=== PATIENT | male | born 1975 | race Caucasian/White ===

== ENCOUNTER 2022-03-06 02:22 | Observation (INO) | payer BC, OTHER ==
--- OUTSIDE RECORDS SUMMARY | 2022-03-06 02:26 | XMS REPORT | Continuity of Care Document ---
:1975 [facility] Organization [facility] t Address [address] [place] [address] Care Team Providers Name Role Phone RAIZA ASHBY Primary Care Physician Unavailable Raiza Ashby Attending Clinician Unavailable Darshan Dunn Attending Clinician Therapy, [facility]fusion Attending Clinician Unavailable Sanya Negron MD Attending Clinician SANYA NEGRON Attending Clinician Unavailable Doctor Unassigned, [place] Attending Clinician Unavailable Amanda MORALEZ, Shirley T Attending Clinician Unavailable Isabel Koehler Attending Clinician ISABEL GARCIA Attending Clinician Unavailable Only, Ang Db Test Attending Clinician Unavailable DARSHAN BAZAN Attending Clinician Unavailable Matthias CALDERON, Gibson Attending Clinician Katarzyna CALDERON, Alida Morrison Attending Clinician Unavailable Payers Payer Name Policy Type Policy Number Effective Date Expiration Date S ource Problems Condition Condition Condition Status Onset Resolution Last Treating Co mments Source Name Details Category Date Date Treatment Clinician Date Dyslipidem Dyslipidem Disease Active 2016-07 U nivers ia ia 0-23 ity of 00:00: [address] Elevated Elevated Disease Active 2016-07 Unive rs hematocrit hematocrit 0-23 it y of 00:00: [place] 00 [facility] Elevated Elevated Disease Active Unive rs blood blood 1-31 ity of pressure pressure 00:00: [place] 00 [facility] Hypogonadi Hypogonadi Disease Active U nivers sm in male sm in male 1-30 it y of 00:00: [place] 00 [facility] Primary Primary Disease Active Univers adrenal adrenal 7-25 ity of insuffic[place] [facility] Allergies, Adverse Reactions, Alerts Allergy Allergy Status Severity Reaction(s) Onset Inactive Treating Comm ents Source Name Type Date Date Clinician PENICILL Drug Active Hives Univers INS Class 6-22 ity of 00:00: [place] 00 [facility] Penicill Propensi Active Hives Univer s ins ty to 6-22 ity of adverse 00:00: [place] reaction 00 [facility] Social History Social Habit Start Date Stop Date Quantity Comments Source Exposure to Not sure [facility] SARS-CoV-2 [facility] (event) [place] Alcohol intake 2021-03-12 2021-03-12 0 /d University of 00:00:00 00:00:00 [facility] Tobacco use and 2018-11-28 2018-11-28 Current user Univers ity of exposure 00:00:00 00:00:00 [facility] Tobacco Comment 2017-04-23 2017-04-23 vapor cigarettes - U niversity of 00:00:00 00:00:00 current user [facility] History of 2014-04-23 Cigarette Smoker Universi ty of tobacco use 00:00:00 [facility] Sex Ass[birth year] At [birth year] Universit y of 00:00:00 00:00:00 [facility] Smoking Status Start Date Stop Date Source Former smoker 2018-11-28 00:00:00 2018-11-28 00:00:00 Universi ty of [facility] Medications Ordered Filled Start Stop Current Ordering Indication Dosage Frequency Signature Comments Components Source Medication Medication Date Date Medication? Clinician (SIG) Name Name casirivimab 2021- No [id number] 1200mg 1,200 mg, Univers -imdevimab 03-15 Subcutaneo it y of (REGEN-COV 21:30: 20:22 [place] ([place]UA[place] 00 :00 1 dose, On Medical injection Tue Branch 1,200 mg 03/15/21 at 1630, Routine casirivimab 0 2020- No [id number] 1200mg 1,200 mg, [facility] -imdevimab 03-15 Subcutaneo it y of (REGEN-COV 21:30: 20:22 [place], [place]CE, [place] (EUA[place] 00 :00 1 dose, On Medical injection Tue Branch 1,200 mg 03/15/21 at 1630, Routine MAGNESIUM 0 Yes Take by Unive rs HYDROXIDE 9-11 mouth. ity of (MAGNESIA 19:26: [place] ORAL) 07 Medical Branch DOCOSAHEXAN Yes Take by Uni vers OIC 9-11 mouth. ity of ACID/EPA 19:26: [place] (FISH OIL 07 Medical ORAL) Branch MAGNESIUM Yes Take by Unive rs HYDROXIDE 9-11 mouth. ity of (MAGNESIA 14:26: [place] ORAL) 07 Medical Branch DOCOSAHEXAN Yes Take by Uni vers OIC 9-11 mouth. ity of ACID/EPA 14:26: [place] (FISH OIL 07 Medical ORAL) Branch MAGNESIUM Yes Take by Unive rs HYDROXIDE 9-11 mouth. ity of (MAGNESIA 14:26: [place] ORAL) 07 Medical Branch DOCOSAHEXAN Yes Take by Uni vers OIC 9-11 mouth. ity of ACID/EPA 14:26: [place] (FISH OIL 07 Medical ORAL) Branch MAGNESIUM 0 Yes Take by Unive rs HYDROXIDE 9-11 mouth. ity of (MAGNESIA 14:26: [place] ORAL) 07 Medical Branch DOCOSAHEXAN Yes Take by Uni vers OIC 9-11 mouth. ity of ACID/EPA 14:26: [place] (FISH OIL 07 Medical ORAL) Branch MAGNESIUM 0 Yes Take by Unive rs HYDROXIDE 9-11 mouth. ity of (MAGNESIA 14:26: [place] ORAL) 07 Medical Branch DOCOSAHEXAN Yes Take by Uni vers OIC 9-11 mouth. ity of ACID/EPA 14:26: [place] (FISH OIL 07 Medical ORAL) Branch MAGNESIUM 2021-0 Yes Take by Unive rs HYDROXIDE 9-11 mouth. ity of (MAGNESIA 14:26: [place] ORAL) 07 Medical Branch DOCOSAHEXAN Yes Take by Uni vers OIC 9-11 mouth. ity of ACID/EPA 14:26: [place] (FISH OIL 07 Medical ORAL) Branch MAGNESIUM Yes Take by Unive rs HYDROXIDE 9-11 mouth. ity of (MAGNESIA 14:26: [place] ORAL) 07 Medical Branch DOCOSAHEXAN Yes Take by Uni vers OIC 9-11 mouth. ity of ACID/EPA 14:26: [place] (FISH OIL 07 Medical ORAL) Branch albuterol Yes [id number] 2{puff} Inhale 2 Univers 90 9-11 Puffs ity of mcg/actuati 00:00: every 6 [place] as on inhaler 00 (six) Medical hours as Branch needed for Wheezing or Shortness of Breath. albuterol Yes [id number] 2{puff} Inhale 2 Univers 90 9-11 Puffs ity of mcg/actuati 00:00: every 6 [place] as on inhaler 00 (six) Medical hours as Branch needed for Wheezing or Shortness of Breath. albuterol Yes [id number] 2{puff} Inhale 2 Univers 90 9-11 Puffs ity of mcg/actuati 00:00: every 6 [place] as on inhaler 00 (six) Medical hours as Branch needed for Wheezing or Shortness of Breath. albuterol Yes [id number] 2{puff} Inhale 2 Univers 90 9-11 Puffs ity of mcg/actuati 00:00: every 6 [place] as on inhaler 00 (six) Medical hours as Branch needed for Wheezing or Shortness of Breath. albuterol Yes [id number] 2{puff} Inhale 2 Univers 90 9-11 Puffs ity of mcg/actuati 00:00: every 6 [place] as on inhaler 00 (six) Medical hours as Branch needed for Wheezing or Shortness of Breath. albuterol Yes [id number] 2{puff} Inhale 2 Univers 90 9-11 Puffs ity of mcg/actuati 00:00: every 6 [place] as on inhaler 00 (six) Medical hours as Branch needed for Wheezing or Shortness of Breath. albuterol Yes [id number] 2{puff} Inhale 2 Univers 90 9-11 Puffs ity of mcg/actuati 00:00: every 6 [place] as on inhaler 00 (six) Medical hours as Branch needed for Wheezing or Shortness of Breath. ondansetron 2020- No [id number] 4mg Take 1 Univers 4 mg tablet 03-12 tablet by it y of 00:00: 04:59 mouth [place] 00 :00 every 8 Medical (eight) Branch hours for 5 days. ondansetron 2020- No [id number] 4mg Take 1 Univers 4 mg tablet 03-12 tablet by it y of 00:00: 04:59 mouth [place] 00 :00 every 8 Medical (eight) Branch hours for 5 days. ondansetron 2020- No [id number] 4mg Take 1 Univers 4 mg tablet 03-12 tablet by it y of 00:00: 04:59 mouth [place] 00 :00 every 8 Medical (eight) Branch hours for 5 days. ondansetron 2020- No [id number] 4mg Take 1 Univers 4 mg tablet 03-12 tablet by it y of 00:00: 04:59 mouth [place] 00 :00 every 8 Medical (eight) Branch hours for 5 days. ondansetron 2020- No [id number] 4mg Take 1 Univers 4 mg tablet 03-12 tablet by it y of 00:00: 04:59 mouth [place] 00 :00 every 8 Medical (eight) Branch hours for 5 days. PRAVASTATIN 2020-0 Yes TAKE 1 Univ ers 20 mg 2-07 TABLET BY ity of tablet 00:00: MOUTH [place] 00 EVERYDAY Medical AT BEDTIME Branch PRAVASTATIN 2020-0 Yes TAKE 1 Univ ers 20 mg 2-07 TABLET BY ity of tablet 00:00: MOUTH [place] 00 EVERYDAY Medical AT BEDTIME Branch PRAVASTATIN 2020-0 Yes TAKE 1 Univ ers 20 mg 2-07 TABLET BY ity of tablet 00:00: MOUTH [place] 00 EVERYDAY Medical AT BEDTIME Branch PRAVASTATIN 2020-0 Yes TAKE 1 Univ ers 20 mg 2-07 TABLET BY ity of tablet 00:00: MOUTH [place] 00 EVERYDAY Medical AT BEDTIME Branch PRAVASTATIN 2020-0 Yes TAKE 1 Univ ers 20 mg 2-07 TABLET BY ity of tablet 00:00: MOUTH [place] 00 EVERYDAY Medical AT BEDTIME Branch PRAVASTATIN 2020-0 Yes TAKE 1 Univ ers 20 mg 2-07 TABLET BY ity of tablet 00:00: MOUTH [place] 00 EVERYDAY Medical AT BEDTIME Branch PRAVASTATIN 2020-0 Yes TAKE 1 Univ ers 20 mg 2-07 TABLET BY ity of tablet 00:00: MOUTH 00 EVERYDAY Medical AT BEDTIME Branch PRAVASTATIN 2020-0 Yes TAKE 1 Univ ers 20 mg 2-07 TABLET BY ity of tablet 00:00: MOUTH [place] 00 EVERYDAY Medical AT BEDTIME Branch PRAVASTATIN 2020-0 Yes TAKE 1 Univ ers 20 mg 2-07 TABLET BY ity of tablet 00:00: MOUTH 00 EVERYDAY Medical AT BEDTIME Branch PRAVASTATIN 2020-0 Yes TAKE 1 Univ ers 20 mg 2-07 TABLET BY ity of tablet 00:00: MOUTH 00 EVERYDAY Medical AT BEDTIME Branch PRAVASTATIN 2020-0 Yes TAKE 1 Univ ers 20 mg 2-07 TABLET BY ity of tablet 00:00: MOUTH 00 EVERYDAY Medical AT BEDTIME Branch PRAVASTATIN 2020-0 Yes TAKE 1 Univ ers 20 mg 2-07 TABLET BY ity of tablet 00:00: MOUTH 00 EVERYDAY Medical AT BEDTIME Branch PRAVASTATIN 2020-0 Yes TAKE 1 Univ ers 20 mg 2-07 TABLET BY ity of tablet 00:00: MOUTH 00 EVERYDAY Medical AT BEDTIME Branch PRAVASTATIN 2020-0 Yes TAKE 1 Univ ers 20 mg 2-07 TABLET BY ity of tablet 00:00: MOUTH 00 EVERYDAY Medical AT BEDTIME Branch PRAVASTATIN 2020-0 Yes TAKE 1 Univ ers 20 mg 2-07 TABLET BY ity of tablet 00:00: MOUTH 00 EVERYDAY Medical AT BEDTIME Branch PRAVASTATIN 2020-0 Yes TAKE 1 Univ ers 20 mg 2-07 TABLET BY ity of tablet 00:00: MOUTH 00 EVERYDAY Medical AT BEDTIME Branch LOSARTAN 2019-1 Yes [id number] TAKE 1 Un ernestine 100 mg 1-18 TABLET BY ity of tablet 00:00: MOUTH ONCE DAILY Medical Branch LOSARTAN 2019-1 Yes [id number] TAKE 1 Un ernestine 100 mg 1-18 TABLET BY ity of tablet 00:00: MOUTH ONCE DAILY Medical Branch LOSARTAN 2019-1 Yes [id number] TAKE 1 Un ernestine 100 mg 1-18 TABLET BY ity of tablet 00:00: MOUTH ONCE [place] 00 DAILY Medical Branch LOSARTAN 2019- Yes [id number] TAKE 1 Un ernestine 100 mg 1-18 TABLET BY ity of tablet 00:00: MOUTH ONCE Medical Branch LOSARTAN 2019- Yes [id number] TAKE 1 Un ernestine 100 mg 1-18 TABLET BY ity of tablet 00:00: MOUTH ONCE Medical Branch LOSARTAN 2019- Yes [id number] TAKE 1 Un ernestine 100 mg 1-18 TABLET BY ity of tablet 00:00: MOUTH ONCE Medical Branch LOSARTAN 2019- Yes [id number] TAKE 1 Un ernestine 100 mg 1-18 TABLET BY ity of tablet 00:00: MOUTH ONCE Medical Branch LOSARTAN 2019- Yes [id number] TAKE 1 Un ernestine 100 mg 1-18 TABLET BY ity of tablet 00:00: MOUTH ONCE Medical Branch LOSARTAN 2019- Yes [id number] TAKE 1 Un ernestine 100 mg 1-18 TABLET BY ity of tablet 00:00: MOUTH ONCE Medical Branch LOSARTAN 2019- Yes [id number] TAKE 1 Un ernestine 100 mg 1-18 TABLET BY ity of tablet 00:00: MOUTH ONCE Medical Branch LOSARTAN 2019- Yes [id number] TAKE 1 Un ernestine 100 mg 1-18 TABLET BY ity of tablet 00:00: MOUTH ONCE Medical Branch LOSARTAN 2019- Yes [id number] TAKE 1 Un ernestine 100 mg 1-18 TABLET BY ity of tablet 00:00: MOUTH ONCE Medical Branch LOSARTAN 2019- Yes [id number] TAKE 1 Un ernestine 100 mg 1-18 TABLET BY ity of tablet 00:00: MOUTH ONCE Medical Branch LOSARTAN 2019- Yes [id number] TAKE 1 Un ernestine 100 mg 1-18 TABLET BY ity of tablet 00:00: MOUTH ONCE Medical Branch LOSARTAN 2019- Yes [id number] TAKE 1 Un ernestine 100 mg 1-18 TABLET BY ity of tablet 00:00: MOUTH ONCE Medical Branch LOSARTAN 2019- Yes [id number] TAKE 1 Un ernestine 100 mg 1-18 TABLET BY ity of tablet 00:00: MOUTH ONCE Medical Branch PRAVASTATIN 2019- 2020- No TAKE 1 Uni vers 20 mg 0-28 02-07 TABLET BY ity of tablet 00:00: 00:00 MOUTH [place] 00 :00 EVERYDAY Medical AT BEDTIME Branch PRAVASTATIN Yes TAKE 1 Univ ers 20 mg 7-29 TABLET BY ity of tablet 00:00: MOUTH [place] 00 EVERYDAY Medical AT BEDTIME Branch LOVAZA, Yes [id number] TAKE 1 Uni vers OMEGA-3-ACI 5-20 CAPSULE BY it y of D ETHYL 00:00: MOUTH [place] ESTERS, 1 00 TWICE Medical gram DAILY WITH Branch capsule FOOD LOVAZA, Yes [id number] TAKE 1 Uni vers OMEGA-3-ACI 5-20 CAPSULE BY it y of D ETHYL 00:00: MOUTH [place] ESTERS, 1 00 TWICE Medical gram DAILY WITH Branch capsule FOOD LOVAZA, Yes [id number] TAKE 1 Uni vers OMEGA-3-ACI 5-20 CAPSULE BY it y of D ETHYL 00:00: MOUTH [place] ESTERS, 1 00 TWICE Medical gram DAILY WITH Branch capsule FOOD LOVAZA, Yes [id number] TAKE 1 Uni vers OMEGA-3-ACI 5-20 CAPSULE BY it y of D ETHYL 00:00: MOUTH [place] ESTERS, 1 00 TWICE Medical gram DAILY WITH Branch capsule FOOD LOVAZA, Yes [id number] TAKE 1 Uni vers OMEGA-3-ACI 5-20 CAPSULE BY it y of D ETHYL 00:00: MOUTH [place] ESTERS, 1 00 TWICE Medical gram DAILY WITH Branch capsule FOOD LOVAZA, Yes [id number] TAKE 1 Uni vers OMEGA-3-ACI 5-20 CAPSULE BY it y of D ETHYL 00:00: MOUTH [place] ESTERS, 1 00 TWICE Medical gram DAILY WITH Branch capsule FOOD LOVAZA, Yes [id number] TAKE 1 Uni vers OMEGA-3-ACI 5-20 CAPSULE BY it y of D ETHYL 00:00: MOUTH [place] ESTERS, 1 00 TWICE Medical gram DAILY WITH Branch capsule FOOD LOVAZA, Yes [id number] TAKE 1 Uni vers OMEGA-3-ACI 5-20 CAPSULE BY it y of D ETHYL 00:00: MOUTH [place] ESTERS, 1 00 TWICE Medical gram DAILY WITH Branch capsule FOOD LOVAZA, Yes [id number] TAKE 1 Uni vers OMEGA-3-ACI 5-20 CAPSULE BY it y of D ETHYL 00:00: MOUTH [place] ESTERS, 1 00 TWICE Medical gram DAILY WITH Branch capsule FOOD LOVAZA, Yes [id number] TAKE 1 Uni vers OMEGA-3-ACI 5-20 CAPSULE BY it y of D ETHYL 00:00: MOUTH [place] ESTERS, 1 00 TWICE Medical gram DAILY WITH Branch capsule FOOD LOVAZA, Yes [id number] TAKE 1 Uni vers OMEGA-3-ACI 5-20 CAPSULE BY it y of D ETHYL 00:00: MOUTH [place] ESTERS, 1 00 TWICE Medical gram DAILY WITH Branch capsule FOOD LOVAZA, Yes [id number] TAKE 1 Uni vers OMEGA-3-ACI 5-20 CAPSULE BY it y of D ETHYL 00:00: MOUTH [place] ESTERS, 1 00 TWICE Medical gram DAILY WITH Branch capsule FOOD LOVAZA, Yes [id number] TAKE 1 Uni vers OMEGA-3-ACI 5-20 CAPSULE BY it y of D ETHYL 00:00: MOUTH [place] ESTERS, 1 00 TWICE Medical gram DAILY WITH Branch capsule FOOD LOVAZA, Yes [id number] TAKE 1 Uni vers OMEGA-3-ACI 5-20 CAPSULE BY it y of D ETHYL 00:00: MOUTH [place] ESTERS, 1 00 TWICE Medical gram DAILY WITH Branch capsule FOOD LOVAZA, Yes [id number] TAKE 1 Uni vers OMEGA-3-ACI 5-20 CAPSULE BY it y of D ETHYL 00:00: MOUTH [place] ESTERS, 1 00 TWICE Medical gram DAILY WITH Branch capsule FOOD LOVAZA, Yes [id number] TAKE 1 Uni vers OMEGA-3-ACI 5-20 CAPSULE BY it y of D ETHYL 00:00: MOUTH [place] ESTERS, 1 00 TWICE Medical gram DAILY WITH Branch capsule FOOD LOVAZA, Yes [id number] TAKE 1 Uni vers OMEGA-3-ACI 5-20 CAPSULE BY it y of D ETHYL 00:00: MOUTH [place] ESTERS, 1 00 TWICE Medical gram DAILY WITH Branch capsule FOOD LOSARTAN Yes TAKE 1 Univers 100 mg 5-17 TABLET BY ity of tablet 00:00: MOUTH ONCE [place] 00 DAILY Medical Branch PRAVASTATIN 0 2019- No TAKE 1 Uni vers 20 mg 4-26 07-29 TABLET BY ity of tablet 00:00: 00:00 MOUTH [place] 00 :00 EVERYDAY Medical AT BEDTIME Branch DOCOSAHEXAN 2017-07 Yes Take by Uni vers OIC 0-29 mouth. ity of ACID/EPA 15:05: [place] (FISH OIL 10 Medical ORAL) Branch DOCOSAHEXAN 2017-07 Yes Take by Uni vers OIC 0-29 mouth. ity of ACID/EPA 15:05: [place] (FISH OIL 10 Medical ORAL) Branch DOCOSAHEXAN 2017-07 Yes Take by Uni vers OIC 0-29 mouth. ity of ACID/EPA 15:05: [place] (FISH OIL 10 Medical ORAL) Branch DOCOSAHEXAN 2017-07 Yes Take by Uni vers OIC 0-29 mouth. ity of ACID/EPA 15:05: [place] (FISH OIL 10 Medical ORAL) Branch DOCOSAHEXAN 2017-07 Yes Take by Uni vers OIC 0-29 mouth. ity of ACID/EPA 15:05: [place] (FISH OIL 10 Medical ORAL) Branch DOCOSAHEXAN 2017-07 Yes Take by Uni vers OIC 0-29 mouth. ity of ACID/EPA 15:05: [place] (FISH OIL 10 Medical ORAL) Branch DOCOSAHEXAN 2017-07 Yes Take by Uni vers OIC 0-29 mouth. ity of ACID/EPA 15:05: [place] (FISH OIL 10 Medical ORAL) Branch DOCOSAHEXAN 2017-07 Yes Take by Uni vers OIC 0-29 mouth. ity of ACID/EPA 15:05: [place] (FISH OIL 10 Medical ORAL) Branch DOCOSAHEXAN 2017-07 Yes Take by Uni vers OIC 0-29 mouth. ity of ACID/EPA 15:05: [place] (FISH OIL 10 Medical ORAL) Branch DOCOSAHEXAN 2017-07 Yes Take by Uni vers OIC 0-29 mouth. ity of ACID/EPA 15:05: [place] (FISH OIL 10 Medical ORAL) Branch HYDROCORTIS Yes [id number] TAKE TWO Univers ONE 10 mg 1-29 TABLETS BY ity of tablet 00:00: MOUTH [place] 00 EVERY Medical MORNING. Branch GIVE EXTRA FOR SICK DAYS HYDROCORTIS Yes [id number] TAKE TWO Univers ONE 10 mg 1-29 TABLETS BY ity of tablet 00:00: MOUTH [place] 00 EVERY Medical MORNING. Branch GIVE EXTRA FOR SICK DAYS HYDROCORTIS Yes [id number] TAKE TWO Univers ONE 10 mg 1-29 TABLETS BY ity of tablet 00:00: MOUTH [place] 00 EVERY Medical MORNING. Branch GIVE EXTRA FOR SICK DAYS HYDROCORTIS Yes [id number] TAKE TWO Univers ONE 10 mg 1-29 TABLETS BY ity of tablet 00:00: MOUTH [place] 00 EVERY Medical MORNING. Branch GIVE EXTRA FOR SICK DAYS HYDROCORTIS 2018-0 Yes [id number] TAKE TWO Univers ONE 10 mg 1-29 TABLETS BY ity of tablet 00:00: MOUTH [place] 00 EVERY Medical MORNING. Branch GIVE EXTRA FOR SICK DAYS HYDROCORTIS 2017- Yes [id number] TAKE TWO Univers ONE 10 mg 1-29 TABLETS BY ity of tablet 00:00: MOUTH [place] 00 EVERY Medical MORNING. Branch GIVE EXTRA FOR SICK DAYS HYDROCORTIS 2017- Yes [id number] TAKE TWO Univers ONE 10 mg 1-29 TABLETS BY ity of tablet 00:00: MOUTH [place] 00 EVERY Medical MORNING. Branch GIVE EXTRA FOR SICK DAYS HYDROCORTIS 2017- Yes [id number] TAKE TWO Univers ONE 10 mg 1-29 TABLETS BY ity of tablet 00:00: MOUTH [place] 00 EVERY Medical MORNING. Branch GIVE EXTRA FOR SICK DAYS HYDROCORTIS 2017- Yes [id number] TAKE TWO Univers ONE 10 mg 1-29 TABLETS BY ity of tablet 00:00: MOUTH [place] 00 EVERY Medical MORNING. Branch GIVE EXTRA FOR SICK DAYS HYDROCORTIS 2017- Yes [id number] TAKE TWO Univers ONE 10 mg 1-29 TABLETS BY ity of tablet 00:00: MOUTH [place] 00 EVERY Medical MORNING. Branch GIVE EXTRA FOR SICK DAYS HYDROCORTIS 2017- Yes [id number] TAKE TWO Univers ONE 10 mg 1-29 TABLETS BY ity of tablet 00:00: MOUTH [place] 00 EVERY Medical MORNING. Branch GIVE EXTRA FOR SICK DAYS HYDROCORTIS 2017- Yes [id number] TAKE TWO Univers ONE 10 mg 1-29 TABLETS BY ity of tablet 00:00: MOUTH [place] 00 EVERY Medical MORNING. Branch GIVE EXTRA FOR SICK DAYS HYDROCORTIS 2017-0 Yes [id number] TAKE TWO Univers ONE 10 mg 1-29 TABLETS BY ity of tablet 00:00: MOUTH [place] 00 EVERY Medical MORNING. Branch GIVE EXTRA FOR SICK DAYS HYDROCORTIS 2017-0 Yes [id number] TAKE TWO Univers ONE 10 mg 1-29 TABLETS BY ity of tablet 00:00: MOUTH [place] 00 EVERY Medical MORNING. Branch GIVE EXTRA FOR SICK DAYS HYDROCORTIS 2017- Yes [id number] TAKE TWO Univers ONE 10 mg 1-29 TABLETS BY ity of tablet 00:00: MOUTH [place] 00 EVERY Medical MORNING. Branch GIVE EXTRA FOR SICK DAYS HYDROCORTIS Yes [id number] TAKE TWO Univers ONE 10 mg 1-29 TABLETS BY ity of tablet 00:00: MOUTH [place] 00 EVERY Medical MORNING. Branch GIVE EXTRA FOR SICK DAYS HYDROCORTIS Yes [id number] TAKE TWO Univers ONE 10 mg 1-29 TABLETS BY ity of tablet 00:00: MOUTH [place] 00 EVERY Medical MORNING. Branch GIVE EXTRA FOR SICK DAYS MAGNESIUM 2016-07 Yes Take by Unive rs HYDROXIDE 0-23 mouth. ity of (MAGNESIA 17:13: [place] ORAL) [address] [place] [address] MAGNESIUM 2016-07 Yes Take by Unive rs HYDROXIDE 0-23 mouth. ity of (MAGNESIA 17:13: [place] ORAL) [address] [place] [address] Branch MAGNESIUM 2016-07 Yes Take by Unive rs HYDROXIDE 0-23 mouth. ity of (MAGNESIA 17:13: [place] ORAL) [address] [place] [address] MAGNESIUM 2016-07 Yes Take by Unive rs HYDROXIDE 0-23 mouth. ity of (MAGNESIA 17:13: [place] ORAL) [address] [place] [address] MAGNESIUM 2016-07 Yes Take by Unive rs HYDROXIDE 0-23 mouth. ity of (MAGNESIA 17:13: [place] ORAL) [address] [place] [address] MAGNESIUM 2016-07 Yes Take by Unive rs HYDROXIDE 0-23 mouth. ity of (MAGNESIA 17:13: [place] ORAL) [address] [place] [address] MAGNESIUM 2016-07 Yes Take by Unive rs HYDROXIDE 0-23 mouth. ity of (MAGNESIA 17:13: [place] ORAL) [address] [place] [address] MAGNESIUM 2016-07 Yes Take by Unive rs HYDROXIDE 0-23 mouth. ity of (MAGNESIA 17:13: [place] ORAL) [address] [place] [address] MAGNESIUM 2016-07 Yes Take by Unive rs HYDROXIDE 0-23 mouth. ity of (MAGNESIA 17:13: [place] ORAL) [address] [place] [address] MAGNESIUM 2016-07 Yes Take by Unive rs HYDROXIDE 0-23 mouth. ity of (MAGNESIA 17:13: [place] ORAL) [address] [place] [address] OTEZLA 30 2016-07 Yes Univers mg tablet 0-13 ity of 00:00: [place] 00 [facility] OTEZRI 30 2016-07 Yes Univers mg tablet 0-13 ity of 00:00: [place] 00 [facility] OTEZRI 30 2016-07 Yes Univers mg tablet 0-13 ity of 00:00: [place] 00 [facility] OTEZRI 30 2016-07 Yes Univers mg tablet 0-13 ity of 00:00: [place] 00 [facility] 2016-07 Yes Univers mg tablet 0-13 ity of 00:00: [place] [facility] 2016-07 Yes Univers mg tablet 0-13 ity of 00:00: [place] [facility] 2016-07 Yes Univers mg tablet 0-13 ity of 00:00: [place] [facility] 2016-07 Yes Univers mg tablet 0-13 ity of 00:00: [facility] 2016-07 Yes Univers mg tablet 0-13 ity of 00:00: [place] [facility] 2016-07 Yes Univers mg tablet 0-13 ity of 00:00: [place] [facility] 2016-07 Yes Univers mg tablet 0-13 ity of 00:00: [place] [facility] 2016-07 Yes Univers mg tablet 0-13 ity of 00:00: [place] [facility] 2016-07 Yes Univers mg tablet 0-13 ity of 00:00: [place] [facility] 2016-07 Yes Univers mg tablet 0-13 ity of 00:00: [place] [facility] 2016-07 Yes Univers mg tablet 0-13 ity of 00:00: [place] [facility] 2016-07 Yes Univers mg tablet 0-13 ity of 00:00: [place] [facility] 2016-07 Yes Univers mg tablet 0-13 ity of 00:00: [place] [facility] Insulin Yes [id number] Use once a Univers Syringe-Nee - week with ity of dle U-100 00:00: [facility] [place] (BD INSULIN tn Medical SYRINGE Branch MICROFINE) 1 mL 27 gauge x 5/8" Syrg Insulin Yes [id number] Use once a Univers Syringe-Nee 1-30 week with ity of dle U-100 00:00: [facility] [place] (BD INSULIN tn Medical SYRINGE Branch MICROFINE) 1 mL 27 gauge x 5/8" Syrg Insulin Yes [id number] Use once a Univers Syringe-Nee 1-30 week with ity of dle U-100 00:00: [facility] [place] (BD INSULIN tn Medical SYRINGE Branch MICROFINE) 1 mL 27 gauge x 5/8" Syrg Insulin 2017-0 Yes [id number] Use once a Univers Syringe-Nee 1-30 week with ity of dle U-100 00:00: [facility] [place] (BD INSULIN 00 ne Medical SYRINGE Branch MICROFINE) 1 mL 27 gauge x 5/8" Syrg Insulin 2017-0 Yes [id number] Use once a Univers Syringe-Nee 1-30 week with ity of dle U-100 00:00: [facility] [place] (BD INSULIN 00 ne Medical SYRINGE Branch MICROFINE) 1 mL 27 gauge x 5/8" Syrg Insulin 2016-0 Yes [id number] Use once a Univers Syringe-Nee 1-30 week with ity of dle U-100 00:00: [facility] [place] (BD INSULIN 00 ne Medical SYRINGE Branch MICROFINE) 1 mL 27 gauge x 5/8" Syrg Insulin 2016- Yes [id number] Use once a Univers Syringe-Nee 1-30 week with ity of dle U-100 00:00: [facility] [place] (BD INSULIN 00 ne Medical SYRINGE Branch MICROFINE) 1 mL 27 gauge x 5/8" Syrg Insulin 2016-0 Yes [id number] Use once a Univers Syringe-Nee 1-30 week with ity of dle U-100 00:00: [facility] [place] (BD INSULIN 00 ne Medical SYRINGE Branch MICROFINE) 1 mL 27 gauge x 5/8" Syrg Insulin 2016-0 Yes [id number] Use once a Univers Syringe-Nee 1-30 week with ity of dle U-100 00:00: [facility] [place] (BD INSULIN 00 ne Medical SYRINGE Branch MICROFINE) 1 mL 27 gauge x 5/8" Syrg Insulin 2017- Yes [id number] Use once a Univers Syringe-Nee 1-30 week with ity of dle U-100 00:00: [facility] [place] (BD INSULIN 00 ne Medical SYRINGE Branch MICROFINE) 1 mL 27 gauge x 5/8" Syrg Insulin 2017-0 Yes [id number] Use once a Univers Syringe-Nee 1-30 week with ity of dle U-100 00:00: [facility] [place] (BD INSULIN 00 ne Medical SYRINGE Branch MICROFINE) 1 mL 27 gauge x 5/8" Syrg Insulin 2017-0 Yes [id number] Use once a Univers Syringe-Nee 1-30 week with ity of [place] U-100 00:00: [place] (BD INSULIN 00 ne Medical SYRINGE Branch MICROFINE) 1 mL 27 gauge x 5/8" Syrg Insulin 2017 Yes [id number] Use once a Univers Syringe-Nee 1-30 week with ity of dle U-100 00:00: [place] (BD INSULIN 00 ne Medical SYRINGE Branch MICROFINE) 1 mL 27 gauge x 5/8" Syrg Insulin 2017 Yes [id number] Use once a Univers Syringe-Nee 1-30 week with ity of [place] U-100 00:00: [place] (BD INSULIN 00 ne Medical SYRINGE Branch MICROFINE) 1 mL 27 gauge x 5/8" Syrg Insulin Yes [id number] Use once a Univers Syringe-Nee 1-30 week with ity of dle U-100 00:00: [place] (BD INSULIN 00 ne Medical SYRINGE Branch MICROFINE) 1 mL 27 gauge x 5/8" Syrg Insulin Yes [id number] Use once a Univers Syringe-Nee 1-30 week with ity of dle U-100 00:00: [place] (BD INSULIN 00 ne Medical SYRINGE Branch MICROFINE) 1 mL 27 gauge x 5/8" Syrg Insulin Yes [id number] Use once a Univers Syringe-Nee 1-30 week with ity of dle U-100 00:00: [place] (BD INSULIN 00 ne Medical SYRINGE Branch MICROFINE) 1 mL 27 gauge x 5/8" Syrg esomeprazol 2015- Yes 40mg Take 40 mg Univers e (NEXIUM) 6-20 by mouth ity o f 40 mg 00:00: daily with [place] capsule 00 breakfast. Medica l Branch esomeprazol 2015- Yes 40mg Take 40 mg Univers e (NEXIUM) 6-20 by mouth ity o f 40 mg 00:00: daily with [place] capsule 00 breakfast. Medica l Branch esomeprazol 0 Yes 40mg Take 40 mg Univers e (NEXIUM) 6-20 by mouth ity o f 40 mg 00:00: daily with [place] capsule 00 breakfast. Medica m[facility] Branch esomeprazol Yes 40mg Take 40 mg Univers e (NEXIUM) 6-20 by mouth ity o f 40 mg 00:00: daily with [place] capsule 00 breakfast. Medica l Branch esomeprazol Yes 40mg Take 40 mg Univers e (NEXIUM) 6-20 by mouth ity o f 40 mg 00:00: daily with [place] capsule 00 breakfast. [facility] esomeprazol Yes 40mg Take 40 mg Univers e (NEXIUM) 6-20 by mouth ity o f 40 mg 00:00: daily with [place] capsule 00 breakfast. Medica m[facility] Branch esomeprazol Yes 40mg Take 40 mg Univers e (NEXIUM) 6-20 by mouth ity o f 40 mg 00:00: daily with [place] capsule 00 breakfast. [facility] esomeprazol Yes 40mg Take 40 mg Univers e (NEXIUM) 6-20 by mouth ity o f 40 mg 00:00: daily with [place] capsule 00 breakfast. [facility] esomeprazol Yes 40mg Take 40 mg Univers e (NEXIUM) 6-20 by mouth ity o f 40 mg 00:00: daily with [place] capsule 00 breakfast. Medica Branch esomeprazol Yes 40mg Take 40 mg Univers e (NEXIUM) 6-20 by mouth ity o f 40 mg 00:00: daily with [place] capsule 00 breakfast. Medica Branch esomeprazol Yes 40mg Take 40 mg Univers e (NEXIUM) 6-20 by mouth ity o f 40 mg 00:00: daily with [place] capsule 00 breakfast. Medica l Branch esomeprazol Yes 40mg Take 40 mg Univers e (NEXIUM) 6-20 by mouth ity o f 40 mg 00:00: daily with [place] capsule 00 breakfast. Medica l Branch esomeprazol Yes 40mg Take 40 mg Univers e (NEXIUM) 6-20 by mouth ity o f 40 mg 00:00: daily with [place] capsule 00 breakfast. Medica Branch esomeprazol Yes 40mg Take 40 mg Univers e (NEXIUM) 6-20 by mouth ity o f 40 mg 00:00: daily with [place] capsule 00 breakfast. [facility] esomeprazol 2016-0 Yes 40mg Take 40 mg Univers e (NEXIUM) 6-20 by mouth ity o f 40 mg 00:00: daily with [place] capsule 00 breakfast. [facility] esomeprazol 2016-0 Yes 40mg Take 40 mg Univers e (NEXIUM) 6-20 by mouth ity o f 40 mg 00:00: daily with [place] capsule 00 breakfast. [facility] esomeprazol 2016-0 Yes 40mg Take 40 mg Univers e (NEXIUM) 6-20 by mouth ity o f 40 mg 00:00: daily with [place] capsule 00 breakfast. [facility] diazepam 2016-0 Yes 5mg Take 5 mg Univ ers (VALIUM) 10 5-31 by mouth ity of mg tablet 00:00: daily. [facility] diazepam 2016-0 Yes 5mg Take 5 mg Univ ers (VALIUM) 10 5-31 by mouth ity of mg tablet 00:00: daily. [facility] diazepam 2016-0 Yes 5mg Take 5 mg Univ ers (VALIUM) 10 5-31 by mouth ity of mg tablet 00:00: daily. [facility] diazepam 2016-0 Yes 5mg Take 5 mg Univ ers (VALIUM) 10 5-31 by mouth ity of mg tablet 00:00: daily. [facility] diazepam 2016-0 Yes 5mg Take 5 mg Univ ers (VALIUM) 10 5-31 by mouth ity of mg tablet 00:00: daily. [facility] diazepam 2016-0 Yes 5mg Take 5 mg Univ ers (VALIUM) 10 5-31 by mouth ity of mg tablet 00:00: daily. [facility] diazepam 2016-0 Yes 5mg Take 5 mg Univ ers (VALIUM) 10 5-31 by mouth ity of mg tablet 00:00: daily. [facility] diazepam 2016-0 Yes 5mg Take 5 mg Univ ers (VALIUM) 10 5-31 by mouth ity of mg tablet 00:00: daily. [facility] diazepam 2016-0 Yes 5mg Take 5 mg Univ ers (VALIUM) 10 5-31 by mouth ity of mg tablet 00:00: daily. [address] diazepam 2016-0 Yes 5mg Take 5 mg Univ ers (VALIUM) 10 5-31 by mouth ity of mg tablet 00:00: daily. [address] diazepam 2016-0 Yes 5mg Take 5 mg Univ ers (VALIUM) 10 5-31 by mouth ity of mg tablet 00:00: daily. [address] diazepam 2016-0 Yes 5mg Take 5 mg Univ ers (VALIUM) 10 5-31 by mouth ity of mg tablet 00:00: daily. [address] diazepam 2016-0 Yes 5mg Take 5 mg Univ ers (VALIUM) 10 5-31 by mouth ity of mg tablet 00:00: daily. [address] diazepam 2016-0 Yes 5mg Take 5 mg Univ ers (VALIUM) 10 5-31 by mouth ity of mg tablet 00:00: daily. [address] diazepam 2016-0 Yes 5mg Take 5 mg Univ ers (VALIUM) 10 5-31 by mouth ity of mg tablet 00:00: daily. [address] diazepam 2016-0 Yes 5mg Take 5 mg Univ ers (VALIUM) 10 5-31 by mouth ity of mg tablet 00:00: daily. [address] diazepam 2016-0 Yes 5mg Take 5 mg Univ ers (VALIUM) 10 5-31 by mouth ity of mg tablet 00:00: daily. [address] Vital Signs Vital Name Observation Time Observation Value Comments Source Systolic blood 2021-03-15 120 mm[Hg] [facility] pressure 21:07:00 [facility] Diastolic blood 2021-03-15 75 mm[Hg] [place] o f pressure 21:07:00 [facility] Heart rate 2021-03-15 95 /min [facility] 21:07:00 [facility] Body temperature 2021-03-15 36.67 Jacki [facility] 21:07:00 [facility] Respiratory rate 2021-03-15 22 /min [facility] 21:07:00 [facility] Oxygen saturation 2021-03-15 94 /min [facility] in Arterial blood 21:07:00 [facility] by Pulse oximetry [place] Body height 2021-03-15 175.3 cm [facility] 20:21:00 [facility] Body weight 2021-03-15 83.915 kg [facility] 20:21:00 [facility] BMI 2021-03-15 27.32 kg/m2 University 20:21:00 [facility] Diastolic blood 2021-03-12 83 mm[Hg] University o f pressure 19:29:00 [facility] Systolic blood 2021-03-12 129 mm[Hg] University of pressure 19:29:00 [facility] Heart rate 2021-03-12 99 /min University 19:26:00 [facility] Body temperature 2021-03-12 37.89 Jacki University 19:26:00 [facility] Respiratory rate 2021-03-12 16 /min University 19:26:00 [facility] Body height 2021-03-12 177.8 cm University 19:26:00 [facility] Body weight 2021-03-12 83.915 kg University 19:26:00 [facility] BMI 2021-03-12 26.54 kg/m2 University 19:26:00 [facility] Oxygen saturation 2021-03-12 95 /min 95 without University in Arterial blood 19:26:00 mask. [facility] by Pulse oximetry [place] Procedures Procedure Date / Time Performed Performing Clinician Sour e [id number] CONSENT 2021-03-15 05:01:00 Doctor Unassigned, No Unive [facility] Encounters Start End Encounter Admission Attending Care Care Encounter Source Date/Time Date/Time Type Type Clinicians Facility Department ID 2021-11-15 Outpatient Ashby, [facility] [id number] Common 09:16:11 [facility] [id number] Spir it - [facility] 2021-07-27 Outpatient [facility] [id number] Common 11:57:22 [id number] Spirit - [facility] 2021-04-05 2021-04-05 Refill Beni, [facility] [id number] Univers 00:00:00 00:00:00 Hometica [id number] it y of [place] [id number] [place] Gaurav?Blea [phone] La kelly[address] Medical Office Building 2021-03-21 2021-03-21 Outpatient [facility] [id number] Univers 00:00:00 00:00:00 ity of [facility] 2021-03-15 2021-03-15 Nurse Therapy, Adc Covid Infusion [facility] 1.2.840.114 [id number] Univers 14:33:53 15:33:53 Visit Sanya Negron [id number] ity [id number] [phone] [place] [id number] Branch 2021-03-15 2021-03-15 Outpatient R [facility] [id number] Univers 15:00:00 15:00:[id number] [facility] 2021-03-15 2021-03-15 Outpatient R NELDA [facility] [id number] Univers 15:00:00 15:00:[address] [facility] 2021-03-15 2021-03-15 Orders Doctor LYSSA 1.2.840.114 [id number] Univers 00:00:00 00:00:00 Only Unassigned, RAÚL [id number] ity of [place] [facility] [id number] [place] as [phone] [facility] 009 [place] 2021-03-14 2021-03-14 Letter LYSSA Patel 1.2.840.114 [id number] Univers 00:00:00 00:00:00 (Out) Shirley OLSEN [id number] it y of [facility] [id number] [place] as [phone] [facility] 019 [place] 2021-03-12 2021-03-12 Urgent Darshan Bazan [facility] 1.2.840.114 [id number] Univers 13:54:31 14:14:31 Davida [facility] [id number] ity of [place] [id number] [place] Gaurav?Blea [phone] La roma wallis [address] [place] [address] Medical Office Building 2021-03-12 2021-03-12 Outpatient [facility] [id number] Univers 14:00:00 14:00:[id number] [facility] 2021-03-12 2021-03-12 Outpatient R JOSE [facility] [id number] Univers 14:00:00 14:00:00 ISABEL ity of [facility] 2021-02-28 2021-02-28 Letter LYSSA Patel 1.2.840.114 [id number] Univers 00:00:00 00:00:00 (Out) Shirley OLSEN [id number] it y of [facility] [id number] [place] as [phone] [address] 2021-02-26 2021-02-26 Laboratory Only, Ang Db Test [facility] 1.2.8 40.114 [id number] Univers 16:48:22 17:03:22 Only [facility] [id number] ity of [place] [id number] [place] Gaurav?Blea [phone] [address] Medical Office Building 2021-02-26 2021-02-26 Outpatient [facility] [id number] Univers 17:00:00 17:00:00 [id number] ity of [facility] 2021-02-26 2021-02-26 Outpatient R BENI [facility] [id number] Univers 17:00:00 17:00:00 DARSHAN ity of [facility] 2021-02-26 2021-02-26 Letter Doctor OMALLEY 1.2.840.114 [id number] Univers 00:00:00 00:00:00 (Out) Unassigned, RAÚL [id number] ity of [place] [facility] [id number] [place] [phone] [address] 2021-02-26 2021-02-26 Letter Doctor OMALLEY 1.2.840.114 [id number] Univers 00:00:00 00:00:00 (Out) Unassigned, RAÚL [id number] ity of [place] [facility] [id number] [place] [phone] [address] 2020-05-19 2020-05-19 Outpatient [facility] [id number] Common 00:00:00 00:00:00 [facility] 2020-04-29 2020-04-29 Outpatient [facility] [id number] Common 00:00:00 00:00:00 [facility] 2020-04-21 2020-04-21 Outpatient [facility] [id number] Common 00:00:00 00:00:00 [facility] 2019-12-18 2019-12-[address] [facility] [id number] Univers 00:00:00 00:00:00 Cameronong [place] [id number] i [id number] [phone] [facility] [address] [facility] 2019-08-08 2019-08-[address] [facility] 1.2.840.114 [id number] Univers 00:00:00 00:00:00 Gibson Bruce [id number] i [id number] [phone] [address] 2019-01-27 2019-01-[address] [facility] 1.2.840.114 [id number] Univers 00:00:00 00:00:00 Alida [place] [id number] i ty [id number] [phone] [address] Results This patient has no known results.
[2022-03-06 02:49] LABS: Absolute Lymphocytes (CBC) 2.9 K/uL (0.7-4.9); Hematocrit 46.6 % (39.6-49.0); Lymphocytes % 42.1 % (15.3-44.8); MCV 87.8 fL (80-100); MPV 8.4 fL (7.6-11.3)
[2022-03-06 02:56] LABS: Protime INR 1.04
[2022-03-06] MEDS ORDERED: MAGNES/ALUMIN/SIMET 30ML UCUP ONE (02:57)
[2022-03-06] MEDS ORDERED: LIDOCAINE VISCOUS 2% SOLN 15 ML UDC ONE (02:57)
[2022-03-06] MEDS ORDERED: PANTOPRAZOLE 40 MG INJ ONE (02:57)
[2022-03-06 03:15] LABS: ALT/SGPT 30 U/L (12-78); Albumin 3.5 g/dL (3.4-5.0); Alkaline Phosphatase 72 U/L (45-117); BUN Blood Urea Nitrogen 18 mg/dL (7-18); Bicarbonate 25 mmol/L (21-32); Bilirubin Total 0.3 mg/dL (0.2-1.0); Glomerular Filtration Rate 101 ml/min (=/>90); Glucose Level 114 mg/dL (74-106); NT PRO-BNP 20 pg/mL (<125); Protein, Total 7.6 g/dL (6.4-8.2); Sodium Level 141 mmol/L (136-145); Troponin High Sensitivity 15.2 pg/mL (<58.9)
[2022-03-06 03:16] LABS: AST/SGOT 12 U/L (15-37)
[2022-03-06 03:17] LABS: Bilirubin Direct < 0.1 mg/dL (0-0.2)
--- NOTE | 2022-03-06 04:21 | ER ---
Nurse's Notes [facility] Name: Indira Nichols Age: 46 yrs Sex: Male : 1975 Arrival Date: 03/06/2022 Time: 02:23 Bed 4 Private MD: Diagnosis: Chest pain, unspecified;Other specified disorders of adrenal gland-[place] Presentation: 03/06 02:23 Chief complaint: EMS states: Woke up at 0130 with CP burning sensation with nausea and ke1 diarrhea. Coronavirus screen: Vaccine status: Patient reports being unvaccinated. Ebola Screen: No symptoms or risks identified at this time. Initial Sepsis Screen: Does the patient meet any 2 criteria? No. Patient's initial sepsis screen is negative. Does the patient have a suspected source of infection? No. Patient's initial sepsis screen is negative. Risk Assessment: Do you want to hurt yourself or someone else? Patient reports no desire to harm self or others. Onset of symptoms was March 06, 2022 at 01:30. 02:23 Method Of Arrival: EMS: [facility] 02:23 Acuity: BASHIR 3 ke1 Triage Assessment: 02:28 General: Appears uncomfortable, Behavior is appropriate for age. Pain: Complains of ke1 pain in chest Pain radiates to left arm Pain currently is 4 out of 10 on a pain scale. at worst was 8 out of 10 on a pain scale. level that patient reports is acceptable is 5 out of 10 on a pain scale. Quality of pain is described as burning, Pain began suddenly, Also complains of nausea. Neuro: Level of Consciousness is awake, alert, Oriented to person, place, time, situation. Respiratory: Respiratory effort is even, unlabored, Respiratory pattern is regular, symmetrical. Historical: - Allergies: 02:27 PENICILLINS; ke1 - PMHx: 02:27 acid reflux; addisons disease; adrenal insufficiency; ke1 - Immunization history:: Client reports having NOT received the Covid vaccine. - Social history:: Smoking status: Reported history of juuling and/or vaping. - Family history:: not pertinent. Screenin:29 Abuse screen: Denies threats or abuse. Nutritional screening: No deficits noted. ke1 Tuberculosis screening: No symptoms or risk factors identified. Fall Risk None identified. Assessment: 02:41 General: Appears uncomfortable, Behavior is calm, cooperative, appropriate for age. tw5 General: Reports. Pain: Complains of pain in chest Pain currently is 5 out of 10 on a pain scale. Quality of pain is described as burning. Pain: Pain radiates to left mandible and left arm. Neuro: Level of Consciousness is awake, alert, obeys commands, Oriented to person, place, time, situation. Cardiovascular: Heart tones S1 S2 present. Respiratory: Airway is patent Trachea midline Respiratory effort is even, unlabored. Respiratory: Breath sounds are clear bilaterally. Vital Signs: 02:23 BP 135 / 86; Pulse 78; Resp 21; Temp 98.8; Pulse Ox 98% on R/A; Weight 85.28 kg; Height ke1 5 ft. 9 in. (175.26 cm); Pain 4/10; 02:41 BP 121 / 84; Pulse 75; Resp 20; Pulse Ox 99% on R/A; Pain 5/10; tw5 03:44 BP 118 / 84; Pulse 63; Resp 15; Pulse Ox 98% on R/A; Pain 1/10; ke1 02:23 Body Mass Index 27.76 (85.28 kg, 175.26 cm) ke1 ED Course: 02:23 Patient arrived in ED. ke1 02:23 Therese Thompson, RN is Primary Nurse. ke1 02:27 Triage completed. ke1 02:29 Bed in low position. Call light in reach. ke1 02:29 Arm band placed on. ke1 02:33 Alex Cruz MD is Attending Physician. [facility] 02:35 Patient has correct armband on for positive identification. Adult w/ patient. Cardiac mh5 monitor on. Pulse ox on. NIBP on. 02:35 Initial lab(s) drawn, by me, sent to lab. EKG done, by ED staff, reviewed by Alex Cruz MD. Maintain EMS IV. Dressing intact. Good blood return noted. Site clean \T\ dry. 02:37 Basic Metabolic Panel Sent. mh5 02:37 CBC with Diff Sent. mh5 02:37 LFT's Sent. mh5 02:37 Magnesium Sent. mh5 02:37 NT PRO-BNP Sent. mh5 02:37 PT-INR Sent. mh5 02:37 Troponin HS Sent. mh5 02:38 PT-INR Sent. tw5 02:38 Basic Metabolic Panel Sent. tw 02:38 CBC with Diff Sent. 02:38 LFT's Sent. 02:38 Magnesium Sent. 02:38 NT PRO-BNP Sent. 02:41 Awaiting lab results. 02:41 Door closed. Noise minimized. Moved to private room. Verbal reassurance given. tw 02:48 Basic Metabolic Panel Sent. 02:48 CBC with Diff Sent. tw 02:48 LFT's Sent. tw 02:48 Magnesium Sent. tw 02:48 NT PRO-BNP Sent. 02:48 PT-INR Sent. 02:48 Troponin HS Sent. tw 03:07 XRAY Chest (1 view) In Process Unspecified. EDMS 04:18 Alex Manning MD is Hospitalizing Provider. aneta 04:22 SARS-COV-2 Antigen Rapid Sent. ke1 04:26 Troponin High Sensitivity: 430AM Sent. tw 04:26 Cortisol Sent. 04:26 Lab(s) recollected, by me, sent to lab. EKG done, by ED staff, reviewed by Alex Cruz MD. Inserted saline lock: 20 gauge in left antecubital area, using aseptic technique. Blood collected. IV discontinued, intact, bleeding controlled, No redness/swelling at site. Pressure dressing applied. 04:31 Ulises Suarez MD is Hospitalizing Provider. as6 04:53 Troponin High Sensitivity: 430AM Sent. tw5 04:53 SARS-COV-2 Antigen Rapid Sent. tw 07:53 Primary Nurse role handed off by Therese Thompson RN eb Administered Medications: 02:53 Drug: GI Cocktail without - (Maalox Suspension 30 ml, Lidocaine Liquid 2 % 15 tw5 ml) Route: PO; 04:53 Follow up: Response: No adverse reaction 02:53 Drug: ProTONIX (pantoprazole) 40 mg Route: IVP; Site: left antecubital; tw 04:53 Follow up: Response: No adverse reaction tw5 04:25 Drug: Solu-CORTEF (hyrdoCORTISONE) 100 mg Route: IVP; Site: left antecubital; ke1 04:52 Follow up: Response: No adverse reaction tw 04:26 Not Given (324 MD ADMINISTERED BY EMSs): Aspirin 81 mg PO once ke1 Medication: 02:44 VIS not applicable for this client. tw5 Outcome: 04:20 Decision to Hospitalize by Provider. aneta 13:11 Patient left the ED. tp1 Signatures: Dispatcher [employer] EDAlex Son MD MD cha Martinez, Beatrice 5 Berna Wu Tiffany tw5 Michael Samson RN RN as6 Isidra Argueta RN RN tp1 Therese Thompson RN RN ke1 Corrections: (The following items were deleted from the chart) 05:43 02:23 BP 135 / 86; Pulse 78bpm; Resp 21bpm; Pulse Ox 98% RA; Temp 98.8F; 85.28 kg; ke1 Height 8 ft. 59 in.; BMI: 5.50; Pain 4/10; ke1
--- NOTE | 2022-03-06 04:21 | EDPHYS ---
Physician Documentation [facility] Name: Indira Nichols Age: 46 yrs Sex: Male : 1975 Arrival Date: 03/06/2022 Time: 02:23 Bed 4 Private MD: ED Physician Alex Cruz HPI: 03/06 04:15 This 46 yrs old Male presents to ER via EMS with complaints of Chest Pain. aneta 04:15 The patient or guardian reports chest pain that is located primarily in the substernal aneta area, anterior chest wall, bilaterally. Onset: 2 day(s) ago. The pain radiates to the left arm. Associated signs and symptoms: The patient has no apparent associated signs or symptoms. The chest pain is described as burning, a heaviness, causing indigestion, a pressure. Duration: The patient or guardian reports multiple episodes, that have now resolved. Modifying factors: The symptoms are alleviated by nothing. the symptoms are aggravated by activity. Severity of pain: At its worst the pain was moderate in the emergency department the pain is unchanged. The patient has not experienced similar symptoms in the past. Historical: - Allergies: 02:27 PENICILLINS; ke1 - PMHx: 02:27 acid reflux; addisons disease; adrenal insufficiency; ke1 - Immunization history:: Client reports having NOT received the Covid vaccine. - Social history:: Smoking status: Reported history of juuling and/or vaping. - Family history:: not pertinent. ROS: 04:15 Constitutional: Negative for fever, chills, and weight loss, Eyes: Negative for injury, aneta pain, redness, and discharge, ENT: Negative for injury, pain, and discharge, Neck: Negative for injury, pain, and swelling, Respiratory: Negative for shortness of breath, cough, wheezing, and pleuritic chest pain, Abdomen/GI: Negative for abdominal pain, nausea, vomiting, diarrhea, and constipation, Back: Negative for injury and pain, : Negative for injury, bleeding, discharge, and swelling, MS/Extremity: Negative for injury and deformity, Skin: Negative for injury, rash, and discoloration, Neuro: Negative for headache, weakness, numbness, tingling, and seizure, Psych: Negative for depression, anxiety, suicide ideation, homicidal ideation, and hallucinations, Allergy/Immunology: Negative for hives, rash, and allergies, Endocrine: Negative for neck swelling, polydipsia, polyuria, polyphagia, and marked weight changes, Hematologic/Lymphatic: Negative for swollen nodes, abnormal bleeding, and unusual bruising. 04:15 Cardiovascular: Positive for chest pain, of the chest. Exam: 04:15 Constitutional: This is a well developed, well nourished patient who is awake, alert, aneta and in no acute distress. Head/Face: Normocephalic, atraumatic. Eyes: Pupils equal round and reactive to light, extra-ocular motions intact. Lids and lashes normal. Conjunctiva and sclera are non-icteric and not injected. Cornea within normal limits. Periorbital areas with no swelling, redness, or edema. ENT: Nares patent. No nasal discharge, no septal abnormalities noted. Tympanic membranes are normal and external auditory canals are clear. Oropharynx with no redness, swelling, or masses, exudates, or evidence of obstruction, uvula midline. Mucous membranes moist. Neck: Trachea midline, no thyromegaly or masses palpated, and no cervical lymphadenopathy. Supple, full range of motion without nuchal rigidity, or vertebral point tenderness. No Meningismus. Chest/axilla: Normal chest wall appearance and motion. Nontender with no deformity. No lesions are appreciated. Cardiovascular: Regular rate and rhythm with a normal S1 and S2. No gallops, murmurs, or rubs. Normal PMI, no JVD. No pulse deficits. Respiratory: Lungs have equal breath sounds bilaterally, clear to auscultation and percussion. No rales, rhonchi or wheezes noted. No increased work of breathing, no retractions or nasal flaring. Abdomen/GI: Soft, non-tender, with normal bowel sounds. No distension or tympany. No guarding or rebound. No evidence of tenderness throughout. Back: No spinal tenderness. No costovertebral tenderness. Full range of motion. Skin: Warm, dry with normal turgor. Normal color with no rashes, no lesions, and no evidence of cellulitis. MS/ Extremity: Pulses equal, no cyanosis. Neurovascular intact. Full, normal range of motion. Neuro: Awake and alert, GCS 15, oriented to person, place, time, and situation. Cranial nerves II-XII grossly intact. Motor strength 5/5 in all extremities. Sensory grossly intact. Cerebellar exam normal. Normal gait. Psych: Awake, alert, with orientation to person, place and time. Behavior, mood, and affect are within normal limits. 04:15 ECG was reviewed by the Attending Physician. 04:17 ECG was reviewed by the Attending Physician. aneta Vital Signs: 02:23 BP 135 / 86; Pulse 78; Resp 21; Temp 98.8; Pulse Ox 98% on R/A; Weight 85.28 kg; Height ke1 5 ft. 9 in. (175.26 cm); Pain 4/10; 02:41 BP 121 / 84; Pulse 75; Resp 20; Pulse Ox 99% on R/A; Pain 5/10; tw5 03:44 BP 118 / 84; Pulse 63; Resp 15; Pulse Ox 98% on R/A; Pain 1/10; ke1 02:23 Body Mass Index 27.76 (85.28 kg, 175.26 cm) ke1 MDM: 02:33 Patient medically screened. aneta 04:21 Differential diagnosis: abnormal EKG, acute myocardial infarction, acute pericarditis, aneta anxiety, chest wall pain, costochondritis, esophagitis, pancreatitis, pericarditis, pleurisy, pneumonia, pulmonary embolus, stable angina, thoracic aortic disection, unstable angina. HEART Score: History: Moderately Suspicious (1), ECG: Normal (0), Age: < or = 45 years (0), Risk Factors: > or = 3 Risk factors for atherosclerotic disease (2), Troponin: < or = 1 x Normal Limit (0). The patient was given aspirin in the Emergency Department. The patient's deep vein thrombosis risk score was calculated as follows: an alternative diagnosis is as likely or more likely than that of deep vein thrombosis (-2.0 Pts). The patient's pulmonary embolism risk score was calculated as follows: Total Score:. AVRIL Risk Score: TOTAL SCORE = 0. Data reviewed: vital signs, nurses notes, lab test result(s), EKG, radiologic studies, plain films. Data interpreted: pvc monitor: rate is 63 beats/min, rhythm is normal sinus rhythm, Pulse oximetry: on room air is 98 %. Test interpretation: by ED physician or midlevel provider: ECG, plain radiologic studies. Counseling: I had a detailed discussion with the patient and/or guardian regarding: the historical points, exam findings, and any diagnostic results supporting the discharge/admit diagnosis, lab results, radiology results, the need for further work-up and treatment in the hospital. 03/06 02:35 Order name: Basic Metabolic Panel; Complete Time: 03:54 [facility] 03/06 02:35 Order name: CBC with Diff; Complete Time: 03:54 [facility] 03/06 02:35 Order name: LFT's; Complete Time: 03:54 [facility] 03/06 02:35 Order name: Magnesium; Complete Time: 03:54 [facility] 03/06 02:35 Order name: NT PRO-BNP; Complete Time: 03:54 [facility] 03/06 02:35 Order name: PT-INR; Complete Time: 03:54 [facility] 03/06 02:35 Order name: Troponin HS; Complete Time: 03:54 [facility] 03/06 02:35 Order name: XRAY Chest (1 view) [facility] 03/06 03:55 Order name: Troponin High Sensitivity: 430AM 03/06 04:12 Order name: SARS-COV-2 Antigen Rapid tw5 03/06 04:15 Order name: Cortisol [facility] 03/06 02:35 Order name: EKG; Complete Time: 02:36 [facility] 03/06 02:35 Order name: Cardiac monitoring; Complete Time: 02:37 [facility] 03/06 02:35 Order name: EKG - Nurse/Tech; Complete Time: 02:37 [facility] 03/06 02:35 Order name: IV Saline Lock; Complete Time: 02:37 [facility] 03/06 02:35 Order name: Labs collected and sent; Complete Time: 02:37 [facility] 03/06 02:35 Order name: O2 Per Protocol; Complete Time: 02:37 [facility] 03/06 02:35 Order name: O2 Sat Monitoring; Complete Time: 02:37 [facility] 03/06 03:55 Order name: EKG; Complete Time: 03:55 [facility] 03/06 03:55 Order name: EKG - Nurse/Tech; Complete Time: 04:26 [facility] EC:15 Rate is 81 beats/min. Rhythm is regular. QRS [place] is Normal. NM interval is normal. QRS aneta interval is normal. QT interval is normal. No Q waves. T waves are Normal. No ST changes noted. Clinical impression: Normal ECG, NSR w/ Non-specific ST/T Changes, and No evidence of ischemia. Interpreted by me. Reviewed by me. 04:17 Rate is 5 beats/min. Rhythm is regular. QRS [place] is Normal. NM interval is normal. QT aneta interval is normal. No Q waves. T waves are Normal. No ST changes noted. Clinical impression: Normal ECG and No evidence of ischemia. Interpreted by me. Reviewed by me. Administered Medications: 02:53 Drug: GI Cocktail without - (Maalox Suspension 30 ml, Lidocaine Liquid 2 % 15 tw5 ml) Route: PO; 04:53 Follow up: Response: No adverse reaction tw5 02:53 Drug: ProTONIX (pantoprazole) 40 mg Route: IVP; Site: left antecubital; tw5 04:53 Follow up: Response: No adverse reaction tw5 04:25 Drug: Solu-CORTEF (hyrdoCORTISONE) 100 mg Route: IVP; Site: left antecubital; ke1 04:52 Follow up: Response: No adverse reaction tw5 04:26 Not Given (324 MD ADMINISTERED BY EMSs): Aspirin 81 mg PO once ke1 Disposition Summary: 03/06/22 04:20 Hospitalization Ordered Hospitalization Status: Observation aneta Condition: Fair aneta Problem: new aneta Symptoms: have improved aneta Bed/Room Type: Standard aneta Provider: Ulises Suarez(03/06/22 04:31) as6 Location: [facility] ER HOLD(03/06/22 12:52) on license of [facility] Room Assignment: (03/06/22 12:52) on license of [facility] Diagnosis - Chest pain, unspecified aneta - Other specified disorders of adrenal gland - Pancho's aneta Forms: - Medication Reconciliation Form aneta - SBAR form aneta Signatures: Dispatcher [employer] EDFL Alex Cruz MD MD cha Garcia, Cindy, RN RN Dayna West 3 Isidra Iglesias tw5 Michael Samson RN RN as6 Therese Thompson RN RN ke1 Corrections: (The following items were deleted from the chart) 04:31 04:20 Alex Manning cha as6 05:16 04:20 Telemetry/MedSurg (observation) aneta cg 05:16 04:20 aneta cg 12:02 05:16 [facility] ER HOLD [facility] 12:02 05:16 ERHOLD- [facility] 12:52 12:02 Telemetry/MedSurg (observation) 3 dh3 12:52 12:02 204 dh3 3
[2022-03-06] MEDS ORDERED: HYDROCORTISONE SUC 100 MG INJ ONE (04:27)
--- NOTE | 2022-03-06 05:05 | P.HP ---
Certification for Inpatient Patient admitted to: Observation With expected LOS: <2 Midnights Patient will require the following post-hospital care: None Practitioner: I am a practitioner with admitting privileges, knowledge of patient current condition, hospital course, and medical plan of care. Services: Services provided to patient in accordance with Admission requirements found in Title 42 Section 412.3 of the Code of Federal Regulations Patient History Date of Service: 03/06/22 Reason for admission: Chest pain History of Present Illness: 46-year-old male with history of Pancho's/adrenal insufficiency and GERD presents the emergency department for chest pain. He reports an episode a few days back while at work describing chest tightness/heaviness rating to his left arm which resolved spontaneously had another episode last night slightly different with burning chest pain, vomiting/diarrhea/palpitations and near syncope with pain radiating down his left arm as well. Reports he had a cardiac evaluation about 6 years ago which was negative minutes when he was diagnosed with [place]'s. Patient with initial negative troponin/EKG with normal sinus rhythm without ST elevations ED provider wishes to admit under observation for ACS rule out. 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 - Family History Father -: Heart disease - Social History Smoking Status: Never smoker Alcohol use: No CD- Drugs: No Caffeine use: Yes Place of Residence: Home Review of Systems 10-point ROS is otherwise unremarkable Cardiovascular: Chest Pain Gastrointestinal: Nausea, Vomiting, Diarrhea Physical Examination - Physical Exam General: Alert, In no apparent distress, Oriented x3 HEENT: Atraumatic, PERRLA, Mucous membr. moist/pink, EOMI, Sclerae nonicteric Neck: Supple, 2+ carotid pulse no bruit, No LAD, Without JVD or thyroid abnormality Respiratory: Clear to auscultation bilaterally, Normal air movement Cardiovascular: Regular rate/rhythm, Normal S1 S2 Gastrointestinal: Normal bowel sounds, No tenderness Musculoskeletal: No tenderness Integumentary: No rashes Neurological: Normal gait, Normal speech, Normal strength at 5/5 x4 extr, Normal tone, Normal affect Lymphatics: No axilla or inguinal lymphadenopathy - Studies Laboratory Data (last 24 hrs) 03/06/22 02:31: PT 11.4, INR 1.04 03/06/22 02:31: WBC 6.80, Hgb 15.9, Hct 46.6, Plt Count 297 03/06/22 02:31: Sodium 141, Potassium 4.0, BUN 18, Creatinine 0.95, Glucose 114 H, Magnesium 2.0, Total Bilirubin 0.3, AST 12 L, ALT 30, Alkaline Phosphatase 72 Assessment and Plan - Plan Assessment: Chest pain R/O ACS GERD Addisons/adrenal ins. Plan: Chest pain R/O ACS: Trend tropnins, monitor on tele, ASA/statin. Cardiology consulted. Pain from last night sounds more related to GI/GERD but had additional episodes this week with chest tightness/pain. GERD: Takes omeprazole at home, continue with protonix for now Addisons/adrenal ins.: Cortisol level sent in ED, does not take chronic steroids at home. DVT PPX: Lovenox Code status:Full Discharge Plan: Home Plan to discharge in: 24 Hours - Advance Directives Does patient have a Living Will: No Does patient have a Durable POA for Healthcare: No - Code Status/Comfort Care Code Status Assessed: Yes (Full code) Critical Care: No Time Spent Managing Pts Care (In Minutes): 55
[2022-03-06 05:12] LABS: SARS-CoV-2 Antigen Rapid Res Negative (Negative)
[2022-03-06] MEDS ORDERED: ONDANSETRON 4 MG/2 ML VIAL IV PRN (05:44)
[2022-03-06 05:54] VITALS: BMI 27.7
[2022-03-06] MEDS ORDERED: PANTOPRAZOLE 40MG TABLET PO SCH (06:30)
[2022-03-06] MEDS ORDERED: ASPIRIN EC 81 MG TAB PO ONE (08:27)
[2022-03-06] MEDS ORDERED: ENOXAPARIN 40 MG/0.4 ML SQ ONE (08:28)
[2022-03-06] MEDS ORDERED: ASPIRIN EC 81 MG TAB PO SCH (09:00)
[2022-03-06] MEDS ORDERED: ENOXAPARIN 40 MG/0.4 ML SQ SCH (09:00)
--- NOTE | 2022-03-06 12:23 | P.DS ---
Admission Date: 03/06/22 Discharge Date: 03/06/22 Disposition: ROUTINE DISCHARGE Discharge Condition: GOOD Reason for Admission: Chest pain Consultations: cardiology, recommended outpt follow up. Brief History of Present Illness: 46-year-old male with history of [place]'s/adrenal insufficiency and GERD presents the emergency department for chest pain. He reports an episode a few days back while at work describing chest tightness/heaviness rating to his left arm which resolved spontaneously had another episode last night slightly different with burning chest pain, vomiting/diarrhea/palpitations and near syncope with pain radiating down his left arm as well. Reports he had a cardiac evaluation about 6 years ago which was negative minutes when he was diagnosed with [place]'s. Patient with initial negative troponin/EKG with normal sinus rhythm without ST elevations ED provider wishes to admit under observation for ACS rule out. Hospital Course: Since admission he had reported significant improvement in chest pain episode after he had a shot of steroid. Since he had issues with adrenal insufficiency there is concern for some sort of endocrine issue contributing to present state. He had troponin trend that was normal and his blood pressure remained stable. His vital signs are remained significantly stable with no significant abnormality. He was evaluated cardiology and was deemed to be stable enough for outpatient testing as he had no significant concerning lab or symptomatology. Vital Signs/Physical Exam: Temp Pulse Resp BP Pulse Ox 97.7 F 60 17 114/64 93 03/06/22 08:00 03/06/22 08:00 03/06/22 08:00 03/06/22 08:00 03/06/22 08:00 General: Alert, Oriented x3 HEENT: Atraumatic, Normocephalic Neck: Supple Respiratory: Normal air movement Cardiovascular: Regular rate/rhythm, Normal S1 S2 Gastrointestinal: Soft and benign Musculoskeletal: No swelling Neurological: Normal speech, Normal strength at 5/5 x4 extr Laboratory Data at Discharge: WBC 6.80 K/uL (4.3-10.9) 03/06/22 02:31 Hgb 15.9 g/dL (13.6-17.9) 03/06/22 02:31 Hct 46.6 % (39.6-49.0) 03/06/22 02:31 Plt Count 297 K/uL (152-406) 03/06/22 02:31 PT 11.4 SECONDS (9.5-12.5) 03/06/22 02:31 INR 1.04 03/06/22 02:31 Sodium 141 mmol/L (136-145) 03/06/22 02:31 Potassium 4.0 mmol/L (3.5-5.1) 03/06/22 02:31 BUN 18 mg/dL (7-18) 03/06/22 02:31 Creatinine 0.95 mg/dL (0.55-1.3) 03/06/22 02:31 Glucose 114 mg/dL (74-106) H 03/06/22 02:31 Magnesium 2.0 mg/dL (1.8-2.4) 03/06/22 02:31 Total Bilirubin 0.3 mg/dL (0.2-1.0) 03/06/22 02:31 AST 12 U/L (15-37) L 03/06/22 02:31 ALT 30 U/L (12-78) 03/06/22 02:31 Alkaline Phosphatase 72 U/L (45-117) 03/06/22 02:31 Home Medications: Apremilast [Otezla] 30 mg PO 1X 03/06/22 Diazepam [Valium] 5 mg PO BEDTIME 03/06/22 Hydrocortisone [Cortef] 20 mg PO PRN 03/06/22 Losartan Potassium 100 mg PO DAILY 03/06/22 Omeprazole 20 mg PO DAILY 03/06/22 Diet: AHA Activity: Ad rochelle Followup: NONE,NONE [Primary Care Provider] - Tom Morrow MD [ACTIVE - CAN ADMIT] -
[2022-03-06 13:30] VITALS: TEMP 98.8
[2022-03-06 13:51] VITALS: BP 118/84; O2SAT 98
--- NOTE | 2022-03-06 15:06 | RAD REPORT ---
EXAM DESCRIPTION: RAD - Chest Single View - 03/06/2022 3:05 am CLINICAL HISTORY: The patient is 46 years old and is Male; CHEST PAIN TECHNIQUE: Frontal view of the chest. COMPARISON: No relevant prior studies available. FINDINGS: LUNGS: Unremarkable. No consolidation. PLEURAL SPACE: Unremarkable. No pleural effusion. No pneumothorax. HEART: Unremarkable. No cardiomegaly. MEDIASTINUM: Unremarkable. BONES/JOINTS: Unremarkable. IMPRESSION: No acute chest findings. Electronically signed by: Mukul Melgar MD 03/06/2022 3:16 AM CDT Due to temporary technical issues with the PACS/Fluency reporting system, reports are being signed by the in house radiologists without review as a courtesy to insure prompt reporting. The interpreting radiologist is fully responsible for the content of the report.
--- NOTE | 2022-03-06 20:22 | CON ---
Date of Consultation: 03/06/[address] Suarez on 03/06/2022. I saw the patient on 03/06/2022. Reason For Consultation: Chest pain. History Of Present Illness: Mr. Nichols is 46 years old. He has a primary care physician and an en docrinologist, but he has not seen him for a while. He has gone to the [facility] recently. He is not on Florinef, but he used to be on it. He takes Cortef, he takes Nexium, Xanax. He has [place]'s, gastroesophageal reflux disease, depression, and anxiety. He comes in with a very burning type chest pain that is midsternal. They radiated to the upper chest including his left arm and his left jaw. It was not exertional, it lasted about an hour or 2. Had nausea, but no vomiting. No diaphor esis. No shortness of breath. Denied any fever or chills or cough. Symptoms have gone away by now. He has ruled out for an UT. EKG, chest x-ray, troponin, and BNP are negative. Past Medical History: As stated above. Allergies: HE IS ALLERGIC TO PENICILLIN. Review of Systems: Negative. Social History: Negative. Family History: Noncontributory. Physical Examination: Vital Signs: Stable, afebrile. HEENT: Negative. Neck: Supple with no bruit. Chest: Clear. Cardiac: Revealed a regular rhythm and rate. No murmurs, gallops, or rubs. Abdomen: Benign. Extremities: Revealed no clubbing, cyanosis, or edema. Diagnostic Data: All within normal limits. Impression And Plan: 1.Atypical chest pain, most likely gastroesophageal reflux disease. However, the pain radiated to t he left arm and the left jaw and I think doing an outpatient MPI on him will be reasonable. 2.Jerauld disease. He will follow up with [facility] soon. 3.Anxiety and depression. 4.Allergy to penicillin. Case was discussed with Dr. Suarez. Patient can go home today. FRANCHESCA/SRUTHI Voice ID: [id number] Report ID: [id number]
[2022-03-06] MEDS ORDERED: ATORVASTATIN 40 MG TAB PO SCH (21:00)
--- NOTE | 2022-03-07 14:34 | EKG ---
Test Date: 2022-03-06 Test Time: 02:28:52 Principal Statistical Scientist: MEASUREMENT RESULTS: Intervals: Rate: 81 NV: 130 QRSD: 86 QT: 336 QTc: 390 [place]: P: 61 NV: 130 QRS: -17 T: 58 INTERPRETIVE STATEMENTS: Normal sinus rhythm Normal ECG Compared to ECG 04/05/2016 21:34:11 No significant changes Electronically Signed On 03-07-22 14:30:56 CDT by Javi Rivera
--- NOTE | 2022-03-07 14:34 | EKG ---
Test Date: 2022-03-06 Test Time: 04:15:34 Credentialing Analyst: MEASUREMENT RESULTS: Intervals: Rate: 55 ND: 130 QRSD: 96 QT: 364 QTc: 348 [place]: P: 26 ND: 130 QRS: -3 T: 34 INTERPRETIVE STATEMENTS: Sinus bradycardia Otherwise normal ECG Compared to ECG 04/05/2016 21:34:11 Sinus rhythm no longer present Electronically Signed On 03-07-22 14:30:52 CDT by Javi Rivera
== END 2022-03-06 13:10 | disposition home or self-care (01) ==
LOC: ER 02:22 → ERHOLD 05:00
PROVIDERS: ADMIT Internal Medicine Nephrology; ATTEND Internal Medicine Nephrology
DX: R07.89 Other chest pain (principal); E27.1 Primary adrenocortical insufficiency; R68.84 Jaw pain; K21.9 Gastro-esophageal reflux disease without esophagitis; F32.A Depression, unspecified; F41.9 Anxiety disorder, unspecified; Z87.891 Personal history of nicotine dependence; Z88.0 Allergy status to penicillin; Z28.310 Unvaccinated for COVID-19; Z20.822 Contact with and (suspected) exposure to COVID-19; Z82.49 Family history of ischemic heart disease and other diseases of the circulatory system
CPT/HCPCS: 36415; 71045; 80048; 80076; 82533; 83735; 83880; 84484; 85025; 85610; 87811; 93005; 96374; 96375; 99285; C9113; G0378; J1650; J1720

== ENCOUNTER 2024-10-09 07:56 | Emergency (ER) | payer BC ==
--- OUTSIDE RECORDS SUMMARY | 2024-10-09 08:00 | XMS REPORT | Continuity of Care Document ---
Author Name Unknown Address [address] [place] [address] [facility] [place] Address [address] [place] [address] Care Team Providers Care Desilverizer Name Role Phone Raiza Casey Primary Care Physician [phone] Raiza Casey Attending Clinician Unavailable Darshan Dunn Attending Clinician [phone] Therapy, Adc Covid Infusion Attending Clinician Unavailable Sanya Negron MD Attending Clinician [phone] SANYA NEGRON Attending Clinician Unavailable Doctor Unassigned, Knierim Attending Clinician U daniel Patel RN, Shirley Xiong Attending Clinician Unavailab Isabel Barrera Attending Clinician [phone] ISABEL GARCIA Attending Clinician Unavailable Only, Ang Db Test Attending Clinician Unavailabl e DARSHAN BAZAN Attending Clinician Unavailable Matthias CALDERON, Gibson Attending Clinician [phone] Katarzyna CALDERON, Alida Morrison Attending Clinician Unasierra wallace Payers Payer Name Policy Type Policy Number Effective Date Expirati on Date Source TML GBRP CLAIMS C1 [id number] [facility] Problems Condition Name Condition Details Condition Category Status Onset Date Resolution Date Last Treatment Date Treating Clinician Comments Source Dyslipidem ia Dyslipidem ia Disease Active 2016-07 00:00: 00 [facility] Elevated hematocrit Elevated hematocrit Disease Active 2016-07 00:00: 00 [facility] Elevated blood pressure Elevated blood pressure Disease Active 08-01 00:00: 00 [facility] 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 Disease Active 07-31 00:00: 00 [facility] Primary adrenal insufficie ncy Primary adrenal insufficie ncy Disease Active 01-23 00:00: 00 [facility] Kidney stone Kidney stones Problem Active [facility] Allergies, Adverse Reactions, Alerts Allergy Name Allergy Type Status Severity Reaction(s) Onset Date Inactive Date Treating Clinician Comments Source PENICILL INS Drug Class Active Hives 12-21 00:00: 00 [facility] Penicill ins Propensi ty to adverse reaction s Active Hives 12-21 00:00: 00 [facility] Penicill ins Propensi ty to adverse reaction s Active Hives 12-21 00:00: 00 [facility] Social History Social Habit Start Date Stop Date Quantity Comments Source Sexual orientation [facility] History of Tobacco Use [facility] Sex Assigned At [facility] Alcohol intake 2021-03-12 00:00:00 2021-03-12 00:00:00 0 /d [facility] Exposure to SARS-CoV-2 (event) 2021-02-09 00:00:00 2021-03-11 12:57:00 Not sure [facility] History of Social function 2019-01-09 00:00:00 2019-01-09 00:00:00 [facility] Tobacco Comment 2017-04-23 00:00:00 2017-04-23 00:00:00 vapor cigarettes - current user [facility] Tobacco use and exposure 2017-04-23 00:00:00 2017-04-23 00:00:00 User of smokeless tobacco [facility] Smoking Status Start Date Stop Date Source Former Smoker 2020-04-21 00:00:00 2020-04-21 00:00:00 [facility] Medications Ordered Medication Name Filled Medication Name Start Date Stop Date Current Medication? Ordering Clinician Indication Dosage Frequency Signature (SIG) Comments Components Source casirivimab -imdevimab (REGEN-COV (EUA)) injection 1,200 mg 03-15 21:30: 00 03-15 20:22 :00 No [id number] 1200mg 1,200 mg, Subcutaneo us, ONCE, 1 dose, On Sun03/15/21 at 1630, Routine [facility] MAGNESIUM HYDROXIDE (MAGNESIA ORAL) 03-12 19:26: 07 Yes Take by mouth. [facility] DOCOSAHEXAN OIC ACID/EPA (FISH OIL ORAL) 03-12 19:26: 07 Yes Take by mouth. [facility] MAGNESIUM HYDROXIDE (MAGNESIA ORAL) 03-12 14:26: 07 Yes Take by mouth. [facility] albuterol 90 mcg/actuati on inhaler 03-12 00:00: 00 Yes [id number] 2{puff} Inhale 2 Puffs every 6 (six) hours as needed for Wheezing or Shortness of Breath. [facility] ondansetron 4 mg tablet 03-12 00:00: 00 03-18 04:59 :00 No [id number] 4mg Take 1 tablet by mouth every 8 (eight) hours for 5 days. [facility] Meloxicam 15 MG Meloxicam 15 MG 2019-07 00:00: 00 06-19 00:00 :00 No 1{table t} QD Meloxicam 15 MG [facility] PRAVASTATIN 20 mg tablet 08-08 00:00: 00 Yes TAKE 1 TABLET BY MOUTH EVERYDAY AT BEDTIME [facility] LOSARTAN 100 mg tablet 2018-0718 00:00: 00 Yes [id number] TAKE 1 TABLET BY MOUTH ONCE DAILY [facility] PRAVASTATIN 20 mg tablet 2018-07 0 00:00: 00 08-08 00:00 :00 No TAKE 1 TABLET BY MOUTH EVERYDAY AT BEDTIME [facility] PRAVASTATIN 20 mg tablet 01-27 00:00: 00 Yes TAKE 1 TABLET BY MOUTH EVERYDAY AT BEDTIME [facility] LOVAZA, OMEGA-3-ACI D ETHYL ESTERS, 1 gram capsule 11-18 00:00: 00 Yes [id number] TAKE 1 CAPSULE BY MOUTH TWICE DAILY WITH FOOD [facility] LOSARTAN 100 mg tablet 11-15 00:00: 00 Yes TAKE 1 TABLET BY MOUTH ONCE DAILY [facility] PRAVASTATIN 20 mg tablet 10-25 00:00: 00 01-27 00:00 :00 No TAKE 1 TABLET BY MOUTH EVERYDAY AT BEDTIME [facility] DOCOSAHEXAN OIC ACID/EPA (FISH OIL ORAL) 2017-07 0 15:05: 10 Yes Take by mouth. [facility] HYDROCORTIS ONE 10 mg tablet 07-30 00:00: 00 Yes [id number] TAKE TWO TABLETS BY MOUTH EVERY MORNING. GIVE EXTRA FOR SICK DAYS [facility] MAGNESIUM HYDROXIDE (MAGNESIA ORAL) 2016-07 0 17:13: 32 Yes Take by mouth. [facility] Insulin Syringe-Nee dle U-100 (BD INSULIN SYRINGE MICROFINE) 1 mL 27 gauge x 5/8" Syrg 07-31 00:00: 00 Yes [id number] Use once a week with testostero ne [facility] Insulin Syringe-Nee dle U-100 (BD INSULIN SYRINGE MICROFINE) 1 mL 27 gauge x 5/8" Syrg 07-31 00:00: 00 Yes [id number] Use once a week with testostero ne [facility] esomeprazol e (NEXIUM) 40 mg capsule 12-19 00:00: 00 Yes 40mg Take 40 mg by mouth daily with breakfast. [facility] diazepam (VALIUM) 10 mg tablet 11-29 00:00: 00 Yes 5mg Take 5 mg by mouth daily. [facility] losartan 20 mg losartan 20 mg No losartan 20 mg [facility] Atorvastati n Calcium 10 MG Atorvastati n Calcium 10 MG No 1{table t} QD Atorvastat in Calcium 10 MG [facility] Nexium 40 MG Nexium 40 MG No 1{capsu le} QD Nexium 40 MG [facility] Otezla 30 MG Otezla 30 MG No 1{table t} BID Otezla 30 MG [facility] Valium 10 MG Valium 10 MG No 1{table t_as_ne eded} QD Valium 10 MG Vital Signs Vital Name Observation Time Observation Value Comments S ource Systolic blood pressure 2021-03-15 21:07:00 120 mm[Hg] [facility] Diastolic blood pressure 2021-03-15 21:07:00 75 mm[Hg] [facility] Heart rate 2021-03-15 21:07:00 95 /min [facility] Body temperature 2021-03-15 21:07:00 36.67 Jacki [facility] Respiratory rate 2021-03-15 21:07:00 22 /min [facility] Oxygen saturation in Arterial blood by Pulse oximetry 2021-03-15 21:07:00 94 /min [facility] Body height 2021-03-15 20:21:00 175.3 cm [facility] Body weight 2021-03-15 20:21:00 83.915 kg [facility] BMI 2021-03-15 20:21:00 27.32 kg/m2 [facility] Diastolic blood pressure 2021-03-12 19:29:00 83 mm[Hg] [facility] Systolic blood pressure 2021-03-12 19:29:00 129 mm[Hg] [facility] Heart rate 2021-03-12 19:26:00 99 /min [facility] Body temperature 2021-03-12 19:26:00 37.89 Jacki [facility] Respiratory rate 2021-03-12 19:26:00 16 /min [facility] Body height 2021-03-12 19:26:00 177.8 cm [facility] Body weight 2021-03-12 19:26:00 83.915 kg [facility] BMI 2021-03-12 19:26:00 26.54 kg/m2 [facility] Oxygen saturation in Arterial blood by Pulse oximetry 2021-03-12 19:26:00 95 /min 95 without mask. [facility] height 2020-04-21 08:30:00 68 [in_i] [facility] weight 2020-04-21 08:30:00 194.2 [lb_av] [facility] temperature 2020-04-21 08:30:00 96.8 [degF] [facility] bmi 2020-04-21 08:30:00 29.52 kg/m2 [facility] oximetry 2020-04-21 08:30:00 98 % [facility] blood pressure systolic 2020-04-21 08:30:00 136 mm[Hg] [facility] blood pressure diastolic 2020-04-21 08:30:00 86 mm[Hg] [facility] Procedures Procedure Date / Time Performed Performing Clinicia n Source [id number] CONSENT 2021-03-15 05:01:00 Doctor Madison signed, Knierim [facility] Encounters Start Date/Time End Date/Time Encounter Type Admission Type Attending Clinicians Care Facility Care Department Encounter ID Source 2021-11-15 09:16:11 Outpatient CaseyAnnh [facility] [id number] [facility] 2021-07-27 11:57:22 Outpatient [facility] [id number] [facility] 2021-04-05 00:00:00 2021-04-05 00:00:00 Refill Darshan Bazan [facility] [id number] 350.1.13.10 4.2.7.2.686 [id number] [facility] 2021-03-21 00:00:00 2021-03-21 00:00:00 Outpatient [facility] [id number] [facility] 2021-03-15 14:33:53 2021-03-15 15:33:53 Nurse Visit Therapy, Adc Covid Sanya Hutchins [facility] [id number] 350.1.13.10 4.2.7.2.686 [id number] [facility] 2021-03-15 15:00:00 2021-03-15 15:00:00 Outpatient SANYA MON [facility] [id number] [facility] 2021-03-15 00:00:00 2021-03-15 00:00:00 Orders Only Doctor Unassigned, Knierim [facility] 1.2.840.114 350.1.13.10 4.2.7.2.686 [id number] [facility] 2021-03-14 00:00:00 2021-03-14 00:00:00 Letter (Out) Shirley Patel [facility] 1.2.840.114 350.1.13.10 4.2.7.2.686 [id number] [facility] 2021-03-14 00:00:00 2021-03-14 00:00:00 Patient Secure Msg Doctor Unassigned, Knierim [facility] 1.2.840.114 350.1.13.10 4.2.7.2.686 [id number] [facility] 2021-03-14 00:00:00 2021-03-14 00:00:00 Patient Secure Msg Doctor Unassigned, Knierim [facility] 1.2.840.114 350.1.13.10 4.2.7.2.686 [id number] [facility] 2021-03-12 13:54:31 2021-03-12 14:14:31 [facility] 1..840.114 350.1.13.10 4.2.7.2.686 [id number] [facility] 2021-03-12 14:00:00 2021-03-12 14:00:00 Outpatient R [facility] [id number] [facility] 2021-02-28 00:00:00 2021-02-28 00:00:00 Letter (Out) AmandaShirley perez [facility] 1.840.114 350.1.13.10 4.2.7.2.686 [id number] [facility] 2021-02-26 16:48:22 2021-02-26 17:03:22 Laboratory Only Only, Ang Db Test Beni [facility] 1..840.114 350.1.13.10 4.2.7.2.686 [id number] [facility] 2021-02-26 17:00:00 2021-02-26 17:00:00 [id number] 2021-02-26 00:00:00 2021-02-26 00:00:00 Letter (Out) Doctor Unassigned, Knierim [facility] 1.2840.114 350.1.13.10 4.2.7.2.686 [id number] [facility] 2021-02-26 00:00:00 2021-02-26 00:00:00 Letter (Out) Doctor Unassigned, Knierim [facility] 1.2840.114 350.1.13.10 4.2.7.2.686 [id number] [facility] 2020-05-19 00:00:2020-05-19 00:00:00 (TEL) STLMLC STLMLC [id number] [facility] 2020-04-29 00:00:00 2020-04-29 00:00:00 (TEL) STLMLC STLMLC [id number] [facility] 2020-04-21 00:00:00 2020-04-21 00:00:00 OFFICE VISIT NEW PT LEVEL 3 STLMLC STLMLC [id number] [facility] 2019-12-18 00:00:00 2019-12-18 00:00:00 [facility] 1.2.840.114 350.1.13.10 4.2.7.2.686 [id number] [facility] 2019-08-08 00:00:00 2019-08-08 00:00:00 Refill Gibson Rizzo [facility] 1.2.840.114 350.1.13.10 4.2.7.2.686 [id number] [facility] 2019-01-27 00:00:00 2019-01-27 00:00:00 Refill Alida Colón [facility] 1.2.840.114 350.1.13.10 4.2.7.2.686 [id number] [facility]
[2024-10-09] MEDS ORDERED: ONDANSETRON 4 MG/2 ML VIAL ONE ×2 (08:09→09:05)
[2024-10-09] MEDS ORDERED: MORPHINE 4 MG/ML SYR ONE ×2 (08:09→09:52)
[2024-10-09] MEDS ORDERED: FAMOTIDINE 20 MG/2 ML VIAL IV ONE (08:09)
[2024-10-09] MEDS ORDERED: CEFTRIAXONE 1000 MG/VIAL ONE (08:09)
[2024-10-09] MEDS ORDERED: KETOROLAC 30 MG/ML INJ ONE (08:09)
[2024-10-09] MEDS ORDERED: NA CHLORIDE 0.9% 1,000 ML ONE ×2 (08:10→09:59)
[2024-10-09 08:19] LABS: Absolute Eosinophils 0.1 K/uL (0-0.5); Absolute Lymphocytes (CBC) 1.6 K/uL (0.7-4.9); Absolute Monocytes 0.6 K/uL (0.1-1.3); Absolute Neutrophil 4.2 K/uL (1.8-8.0); Basophils % 0.3 % (0-1.3); Hematocrit 45.8 % (39.6-49.0); Lymphocytes % 24.7 % (15.3-44.8); MCH 30.3 pg (27.0-35.0); MCHC 34.9 g/dL (32.0-36.0); Monocytes % 8.9 % (3.3-12.3); Neutrophils % 64.1 % (41.7-73.7); Nucleated Red Blood Cells % 0.2 % (0-0); Platelets 289 thou/uL (152-406); RBC Red Blood Cell Count 5.26 M/uL (4.33-5.43)
[2024-10-09 08:24] LABS: Specific Gravity 1.029 (1.005-1.030); Sqamous Epithelial None Seen /HPF (None Seen); Urine Bacteria <20 /HPF (<20); Urine Bilirubin NEGATIVE (Negative); Urine Blood 1+ (Negative); Urine Clarity Clear (Clear); Urine Color Yellow (Yellow); Urine Culture Reflex Order NOT NEEDED; Urine Glucose NEGATIVE (Negative); Urine Ketones NEGATIVE (Negative); Urine Microscopic Reflex YN ORDER UMIC; Urine Mucus 4+ /HPF (None Seen); Urine Nitrite NEGATIVE (Negative); Urine Protein TRACE (Negative); Urine RBC 21-50 /HPF (None Seen); Urine Urobilinogen Normal (Normal); Urine WBC <5 /HPF (<5); Urine pH 5.5 (5.0-7.0)
--- NOTE | 2024-10-09 08:30 | RAD REPORT ---
EXAMINATION: Stone Protocol CLINICAL INDICATION: Abdominal pain TECHNIQUE: CT abdomen and pelvis was performed, without IV contrast, as per department protocol. Oral contrast not given. Axial, sagittal and coronal reconstructions were obtained. One or more of the following dose reduction techniques were used: Automated exposure control, adjustment of the mA and k V according to the patient size, and iterative reconstruction. Unless otherwise specified, incidental findings do not require dedicated imaging follow-up. COMPARISON: 2018 FINDINGS: The lack of intravenous and oral contrast limits the sensitivity of this exam for evaluation of solid visceral organs, vascular structures, and bowel Small bilateral renal calculi. Mild left hydronephrosis. 2.1 cm left renal cyst. 5 mm calculus proxim al left ureter. Liver, spleen, pancreas and adrenals grossly normal No evidence of diverticulitis. Appendicolith are present. The appendix is upper limits normal size. No adjacent stranding. No eviden ce to suggest appendicitis. Small left inguinal hernia IMPRESSION: 5 mm calculus proximal left ureter results in mild left hydronephrosis
[2024-10-09 08:48] LABS: Albumin 3.8 g/dL (3.4-5.0); Albumin/Globulin Ratio 0.9 (1.1-1.8); Anion Gap 6.7 mEq/L (5.0-15.0); Bilirubin Total 0.6 mg/dL (0.2-1.0); Globulin 4.3 g/dL (2.3-3.5); Potassium 3.7 mEq/L (3.5-5.1); Protein, Total 8.1 g/dL (6.4-8.2)
[2024-10-09] MEDS ORDERED: TAMSULOSIN 0.4 MG SR CAP ONE (08:57)
[2024-10-09] MEDS ORDERED: HYDROCORTISONE SUC 100 MG INJ ONE (08:57)
[2024-10-09] MEDS ORDERED: HYDROMORPHONE HCL 1 MG/ML INJ ONE (09:05)
--- NOTE | 2024-10-09 10:35 | EDPHYS ---
Physician Documentation [facility] Name: Indira Nichols Age: 49 yrs Sex: Male : 1975 Arrival Date: 10/09/2024 Time: 07:56 Bed 8 Private MD: [place] Physician Alex Cruz HPI: 10/09 08:39 This 49 yrs old Male presents to ER via Ambulatory with complaints of left aneta flank pain. 08:39 The patient presents with abdominal pain in the left upper quadrant, in the left lower aneta quadrant. Onset: The symptoms/episode began/occurred just prior to arrival, this morning. The patient complains of pain in the left low back and left mid back. The pain radiates to the left low back and left mid back. Onset: The symptoms/episode began/occurred this morning, today. Modifying factors: The symptoms are alleviated by nothing. the symptoms are aggravated by nothing. Associated signs and symptoms: Pertinent positives: dysuria, nausea. The symptoms radiate to the left flank. Associated signs and symptoms: Pertinent positives: nausea, vomiting. Modifying factors: The symptoms are alleviated by nothing, the symptoms are aggravated by nothing. Historical: - Allergies: 08:22 PENICILLINS; ph - PMHx: 08:22 acid reflux; addisons disease; adrenal insufficiency; ph - Immunization history:: Adult Immunizations unknown. - Infectious Disease History:: Denies. - Social history:: Smoking status: unknown. - Family history:: not pertinent. ROS: 08:39 Constitutional: Negative for fever, chills, and weight loss, Eyes: Negative for injury, aneta pain, redness, and discharge, ENT: Negative for injury, pain, and discharge, Neck: Negative for injury, pain, and swelling, Cardiovascular: Negative for chest pain, palpitations, and edema, Respiratory: Negative for shortness of breath, cough, wheezing, and pleuritic chest pain, Abdomen/GI: Negative for abdominal pain, nausea, vomiting, diarrhea, and constipation, : Negative for injury, bleeding, discharge, and swelling, MS/Extremity: Negative for injury and deformity, Skin: Negative for injury, rash, and discoloration, Neuro: Negative for headache, weakness, numbness, tingling, and seizure, Psych: Negative for depression, anxiety, suicide ideation, homicidal ideation, and hallucinations, Allergy/Immunology: Negative for hives, rash, and allergies, Endocrine: Negative for neck swelling, polydipsia, polyuria, polyphagia, and marked weight changes, Hematologic/Lymphatic: Negative for swollen nodes, abnormal bleeding, and unusual bruising, 08:39 Back: Positive for flank pain, on the left, Exam: 08:39 Constitutional: This is a well developed, well nourished patient who is awake, alert, aneta and in no acute distress. Head/Face: Normocephalic, atraumatic. Eyes: Pupils equal round and reactive to light, extra-ocular motions intact. Lids and lashes normal. Conjunctiva and sclera are non-icteric and not injected. Cornea within normal limits. Periorbital areas with no swelling, redness, or edema. ENT: Nares patent. No nasal discharge, no septal abnormalities noted. Tympanic membranes are normal and external auditory canals are clear. Oropharynx with no redness, swelling, or masses, exudates, or evidence of obstruction, uvula midline. Mucous membranes moist. Neck: Trachea midline, no thyromegaly or masses palpated, and no cervical lymphadenopathy. Supple, full range of motion without nuchal rigidity, or vertebral point tenderness. No Meningismus. Chest/axilla: Normal chest wall appearance and motion. Nontender with no deformity. No lesions are appreciated. Cardiovascular: Regular rate and rhythm with a normal S1 and S2. No gallops, murmurs, or rubs. Normal PMI, no JVD. No pulse deficits. Respiratory: Lungs have equal breath sounds bilaterally, clear to auscultation and percussion. No rales, rhonchi or wheezes noted. No increased work of breathing, no retractions or nasal flaring. Abdomen/GI: Soft, non-tender, with normal bowel sounds. No distension or tympany. No guarding or rebound. No evidence of tenderness throughout. Male : Normal genitalia with no discharge or lesions. Skin: Warm, dry with normal turgor. Normal color with no rashes, no lesions, and no evidence of cellulitis. MS/ Extremity: Pulses equal, no cyanosis. Neurovascular intact. Full, normal range of motion., bilateral aka Neuro: Awake and alert, GCS 15, oriented to person, place, time, and situation. Cranial nerves II-XII grossly intact. Motor strength 5/5 in all extremities. Sensory grossly intact. Cerebellar exam normal. Normal gait. Psych: Awake, alert, with orientation to person, place and time. Behavior, mood, and affect are within normal limits. 08:39 Back: pain, is absent, ROM is normal, normal spinal alignment noted, CVA tenderness, that is moderate, is noted on the left, Vital Signs: 08:20 BP 157 / 99; Pulse 80; Resp 18; Temp 97.8; Pulse Ox 97% on R/A; ph 09:00 BP 128 / 75; Pulse 80; Resp 18; Pulse Ox 95% on R/A; ph 10:04 BP 130 / 93; Pulse 76; Resp 18; Pulse Ox 94% on R/A; ph 11:03 BP 107 / 69; Pulse 66; Resp 18; Temp 97.9; Pulse Ox 98% on R/A; ph MDM: 08:00 Medical Screening Exam initiated aneta 08:07 Medical Screening Exam initiated aneta 08:43 Differential diagnosis: nephrolithiasis, pyelonephritis, diverticulitis, pancreatitis, [facility] Cholelithiasis, gastritis, non-specific abd pain, Prostatitis, Pyelonephritis, Ureterolithiasis, urinary tract infection. Data reviewed: vital signs, nurses notes, lab test result(s), radiologic studies, CT scan. Consideration of Admission/Observation Escalation of care including admission/observation considered. I considered the following discharge prescriptions or medication management in the emergency department Medications were administered in the Emergency Department. See MAR. Test considered but Not performed: Ultrasound no renal us. 10/09 08:03 Order name: CBC with Diff; Complete Time: 08:42 [facility] 10/09 08:03 Order name: CMP; Complete Time: 08:49 [facility] 10/09 08:03 Order name: Lipase; Complete Time: 08:49 [facility] 10/09 08:03 Order name: Urinalysis w/ reflexes; Complete Time: 08:42 [facility] 10/09 08:03 Order name: CT Stone Protocol; Complete Time: 08:42 [facility] 10/09 08:03 Order name: IV Saline Lock; Complete Time: 08:26 [facility] 10/09 08:03 Order name: Labs collected and sent; Complete Time: 08:26 [facility] Administered Medications: 08:26 Drug: Famotidine IVP 20 mg IVP once; dilute with 10 mL 0.9% NaCl; give over 2 minutes ph Route: IVP; Site: left antecubital; 09:00 Follow up: Response: No adverse reaction ph 08:26 Drug: morphine IVP or IV 4 mg IVP once over 4 mins Route: IVP; Infused Over: 4 mins; ph Site: left antecubital; 09:00 Follow up: Response: No adverse reaction ph 08:26 Drug: NS 0.9% IV 1000 ml IV at 1 bolus Per protocol; to be given as a bolus over 60 ph minutes Route: IV; Rate: 1 bolus; Site: left antecubital; 09:00 Follow up: Response: No adverse reaction ph 09:00 Follow up: Response: No adverse reaction ph 08:26 Drug: Ondansetron IVP 8 mg IVP once; over 2 minutes Route: IVP; Site: left antecubital; ph 09:00 Follow up: Response: No adverse reaction ph 08:26 Drug: Ketorolac IVP 30 mg IVP once Route: IVP; Site: left antecubital; ph 09:00 Follow up: Response: No adverse reaction ph 09:09 Drug: Rocephin IV 1 grams IV at per protocol once; Given slow IV push per pharmacy ph instructions Route: IV; Rate: per protocol; Site: left antecubital; 09:30 Follow up: Response: No adverse reaction; IV Status: Completed infusion ph 09:09 Drug: Solu-CORTEF IVP 100 mg IVP once Route: IVP; Site: left antecubital; ph 09:30 Follow up: Response: No adverse reaction ph 09:09 Drug: Flomax PO 0.4 mg PO once Route: PO; ph 09:30 Follow up: Response: No adverse reaction ph 09:09 Drug: HYDROmorphone IVP 1 mg IVP once Route: IVP; Site: left antecubital; ph 09:30 Follow up: Response: No adverse reaction; Pain is decreased; RASS: Drowsy (-1) ph 09:40 Drug: Ondansetron IVP 4 mg IVP once; over 2 minutes Route: IVP; Site: left antecubital; ph 10:00 Follow up: Response: No adverse reaction ph 10:04 Drug: morphine IVP or IV 4 mg IVP once over 4 mins Route: IVP; Infused Over: 4 mins; ph Site: left antecubital; 10:15 Follow up: Response: No adverse reaction; Pain is decreased ph 10:35 Drug: NS 0.9% IV 1000 ml IV at 1 bolus Per protocol; to be given as a bolus over 60 ph minutes Route: IV; Rate: 1 bolus; Site: left antecubital; 11:45 Follow up: Response: No adverse reaction; IV Status: Completed infusion; IV Intake: ph 1000ml 11:01 Drug: Hydrocodone-Acetaminophen PO (7.5 mg-325 mg) 1 tabs PO once Route: PO; ph 11:10 Follow up: Response: No adverse reaction ph 11:01 Drug: Diazepam PO 10 mg PO once Route: PO; ph 11:10 Follow up: Response: No adverse reaction ph Disposition Summary: 10/09/24 10:34 Discharge Ordered Notes: Location: Home aneta Problem: new aneta Symptoms: have improved aneta Condition: Stable aneta Diagnosis - Hydronephrosis with renal and ureteral calculous obstruction - left proximal 5mm aneta stone Followup: aneta - With: Private Physician - When: 2 - 3 days - Reason: Recheck today's complaints, Continuance of care, Re-evaluation by your physician Followup: aneta - With: Ayden Sawyer MD - When: 2 - 3 days - Reason: Recheck today's complaints, Re-evaluation by your physician Discharge Instructions: - Discharge Summary Sheet aneta - Kidney Stones aneta - Kidney Stones, [id number] aneta - Hydronephrosis [facility] - Dietary Guidelines to Help Prevent Kidney Stones [facility] Forms: - Medication Reconciliation Form aneta - Antibiotic Education aneta - Prescription Opioid Use aneta - Patient Portal Instructions [facility] - Leadership Thank You Letter [facility] Prescriptions: - Flomax 0.4 mg Oral capsule - take 1 capsule ORAL route every 24 hours; 30 capsule; Refills: 0, Product aneta Selection Permitted - ketorolac 10 mg Oral tablet - take 1 tablet ORAL route every 6 hours for 4 days as needed for pain; 16 aneta tablet; Refills: 0, Product Selection Permitted - ondansetron 4 mg Oral Tablet,disintegrating - take 1 tablet ORAL route every 6-8 hours for 5 days prn; 20 tablet; Refills: 0, [facility] Product Selection Permitted - Cipro 500 mg Oral Tablet - take 1 tablet ORAL route every 12 hours for 7 days; 14 tablet; Refills: 0, [facility] Product Selection Permitted - Tylenol-Codeine #3 300mg-30mg Oral tablet - take 2 tablets ORAL route every 6 hours As needed; 20 tablet; Refills: 0, aneta Product Selection Permitted Signatures: Dispatcher [employer] Alex Archuleta MD MD cha Hall, Patricia RN RN ph
--- NOTE | 2024-10-09 10:35 | ER ---
Nurse's Notes [facility] Name: Indira Nichols Age: 49 yrs Sex: Male : 1975 Arrival Date: 10/09/2024 Time: 07:56 Bed 8 Private MD: Diagnosis: Hydronephrosis with renal and ureteral calculous obstruction-left proximal 5mm stone Presentation: 10/09 08:20 Chief complaint: Patient states: L sided flank pain that started [employer], hx of kidney ph stones, states this feels the same, denies N/V. Coronavirus screen: Vaccine status: Patient reports being unvaccinated. Ebola Screen: No symptoms or risks identified at this time. Initial Sepsis Screen: Does the patient meet any 2 criteria? No. Patient's initial sepsis screen is negative. Does the patient have a suspected source of infection? No. Patient's initial sepsis screen is negative. Risk Assessment: Do you want to hurt yourself or someone else? Patient reports no desire to harm self or others. 08:20 Method Of Arrival: Ambulatory ph 08:20 Acuity: BASHIR 3 ph 08:25 Onset of symptoms was October 09, 2024. ph Triage Assessment: 08:22 General: Appears in no apparent distress. uncomfortable, well groomed, Behavior is ph calm, cooperative, appropriate for age. Pain: Complains of pain in left mid back Pain radiates to anterior aspect of left lateral abdomen, posterior aspect of left lateral abdomen and left lower quadrant. Neuro: Level of Consciousness is awake, alert, obeys commands, Oriented to person, place, time, situation. Cardiovascular: Capillary refill < 3 seconds in bilateral fingers Patient's skin is warm and dry. Respiratory: Airway is patent Respiratory effort is even, unlabored, Respiratory pattern is regular, symmetrical. GI: Patient currently denies nausea, vomiting. Derm: Skin is pink, warm \T\ dry. Historical: - Allergies: 08:22 PENICILLINS; ph - PMHx: 08:22 acid reflux; addisons disease; adrenal insufficiency; ph - Immunization history:: Adult Immunizations unknown. - Infectious Disease History:: Denies. - Social history:: Smoking status: unknown. - Family history:: not pertinent. Screenin:24 [facility] ED Fall Risk Assessment (Adult) History of falling in the last 3 months, ph including since admission No falls in past 3 months (0 pts) Confusion or Disorientation No (0 pts) Intoxicated or Sedated No (0 pts) Impaired Gait No (0 pts) Mobility Assist Device Used No (0 pt) Altered Elimination No (0 pt) Score/Fall Risk Level 0 - 2 = Low Risk Oriented to surroundings, Maintained a safe environment, Hourly rounding (assess needs \T\ fall precautionary measures) done. Abuse screen: Denies threats or abuse. Denies injuries from another. Nutritional screening: No deficits noted. Tuberculosis screening: No symptoms or risk factors identified. Assessment: 08:23 General: SEE TRIAGE ASSESSMENT. ph 10:05 Reassessment: Patient appears in no apparent distress at this time. Patient and/or ph family updated on plan of care and expected duration. Pain level reassessed. Patient is alert, oriented x 3, equal unlabored respirations, skin warm/dry/pink. 11:02 Reassessment: Patient appears in no apparent distress at this time. Patient and/or ph family updated on plan of care and expected duration. Pain level reassessed. Patient is alert, oriented x 3, equal unlabored respirations, skin warm/dry/pink. Vital Signs: 08:20 BP 157 / 99; Pulse 80; Resp 18; Temp 97.8; Pulse Ox 97% on R/A; ph 09:00 BP 128 / 75; Pulse 80; Resp 18; Pulse Ox 95% on R/A; ph 10:04 BP 130 / 93; Pulse 76; Resp 18; Pulse Ox 94% on R/A; ph 11:03 BP 107 / 69; Pulse 66; Resp 18; Temp 97.9; Pulse Ox 98% on R/A; ph ED Course: 08:00 Patient arrived in ED. aneta 08:00 Alex Cruz MD is Attending Physician. aneta 08:05 Rosita Abraham, RN is Primary Nurse. ph 08:16 CT Stone Protocol In Process Unspecified. EDMS 08:22 Triage completed. ph 08:23 Arm band placed on Patient placed in an exam room, on a stretcher. ph 08:24 Patient has correct armband on for positive identification. Bed in low position. Call ph light in reach. Side rails up X 1. Pulse ox on. NIBP on. Door closed. Noise minimized. 09:29 Initial lab(s) drawn, by me, sent to lab. Urine collected: clean catch specimen, clear. [id number] Inserted saline lock: 20 gauge in left antecubital area, using aseptic technique. Blood collected. Flushed with 10 mL NS. 10:05 No provider procedures requiring assistance completed. ph 10:34 Ayden Sawyer MD is Referral Physician. aneta 11:02 IV discontinued, intact, bleeding controlled, No redness/swelling at site. Pressure ph dressing applied. Administered Medications: 08:26 Drug: Famotidine IVP 20 mg IVP once; dilute with 10 mL 0.9% NaCl; give over 2 minutes ph Route: IVP; Site: left antecubital; 09:00 Follow up: Response: No adverse reaction ph 08:26 Drug: morphine IVP or IV 4 mg IVP once over 4 mins Route: IVP; Infused Over: 4 mins; ph Site: left antecubital; 09:00 Follow up: Response: No adverse reaction ph 08:26 Drug: NS 0.9% IV 1000 ml IV at 1 bolus Per protocol; to be given as a bolus over 60 ph minutes Route: IV; Rate: 1 bolus; Site: left antecubital; 09:00 Follow up: Response: No adverse reaction ph 09:00 Follow up: Response: No adverse reaction ph 08:26 Drug: Ondansetron IVP 8 mg IVP once; over 2 minutes Route: IVP; Site: left antecubital; ph 09:00 Follow up: Response: No adverse reaction ph 08:26 Drug: Ketorolac IVP 30 mg IVP once Route: IVP; Site: left antecubital; ph 09:00 Follow up: Response: No adverse reaction ph 09:09 Drug: Rocephin IV 1 grams IV at per protocol once; Given slow IV push per pharmacy ph instructions Route: IV; Rate: per protocol; Site: left antecubital; 09:30 Follow up: Response: No adverse reaction; IV Status: Completed infusion ph 09:09 Drug: Solu-CORTEF IVP 100 mg IVP once Route: IVP; Site: left antecubital; ph 09:30 Follow up: Response: No adverse reaction ph 09:09 Drug: Flomax PO 0.4 mg PO once Route: PO; ph 09:30 Follow up: Response: No adverse reaction ph 09:09 Drug: HYDROmorphone IVP 1 mg IVP once Route: IVP; Site: left antecubital; ph 09:30 Follow up: Response: No adverse reaction; Pain is decreased; RASS: Drowsy (-1) ph 09:40 Drug: Ondansetron IVP 4 mg IVP once; over 2 minutes Route: IVP; Site: left antecubital; ph 10:00 Follow up: Response: No adverse reaction ph 10:04 Drug: morphine IVP or IV 4 mg IVP once over 4 mins Route: IVP; Infused Over: 4 mins; ph Site: left antecubital; 10:15 Follow up: Response: No adverse reaction; Pain is decreased ph 10:35 Drug: NS 0.9% IV 1000 ml IV at 1 bolus Per protocol; to be given as a bolus over 60 ph minutes Route: IV; Rate: 1 bolus; Site: left antecubital; 11:45 Follow up: Response: No adverse reaction; IV Status: Completed infusion; IV Intake: ph 1000ml 11:01 Drug: Hydrocodone-Acetaminophen PO (7.5 mg-325 mg) 1 tabs PO once Route: PO; ph 11:10 Follow up: Response: No adverse reaction ph 11:01 Drug: Diazepam PO 10 mg PO once Route: PO; ph 11:10 Follow up: Response: No adverse reaction ph Medication: 08:25 VIS not applicable for this client. ph Intake: 11:45 IV: 1000ml; Total: 1000ml. ph Outcome: 10:34 Discharge ordered by . aneta 11:01 Discharged to home ambulatory, with friend, ph 11:01 Condition: good 11:01 Discharge instructions given to patient, Instructed on discharge instructions, follow up and referral plans. medication usage, Demonstrated understanding of instructions, follow-up care, medications, Prescriptions given X 5 11:04 Patient left the ED. ph Signatures: Dispatcher [employer] Alex Archuleta MD MD cha Hall, Patricia, RN RN Yesy Sanchez [id number]
[2024-10-09] MEDS ORDERED: DIAZEPAM 5 MG TABLET ONE (10:47)
[2024-10-09] MEDS ORDERED: HYDROCODONE/APAP 7.5/325 MG TAB ONE (10:47)
[2024-10-09 11:41] VITALS: BP 107/69; TEMP 97.9; O2SAT 98
== END 2024-10-09 11:04 | disposition home or self-care (01) ==
LOC: ER 07:56
DX: N13.2 Hydronephrosis with renal and ureteral calculous obstruction (principal)
CPT/HCPCS: 96365; 96361; 85025; 81001; 36415; 83690; 80053; 76377; 74176; 96375; 99284; J1171; J1720; J2405 ×2; J7030 ×2; J0696